=== PATIENT | female | born 1985 | race Caucasian/White ===

== ENCOUNTER 2017-02-17 17:09 | Inpatient (IN) | payer OTHER ==
[2017-02-17 17:36] VITALS: BMI 22.8
--- NOTE | 2017-02-17 18:00 | HP ---
COWS - Scale Resting Pulse: 0= [place] 80 or Below Sweatin=Flushed/Facial Moisture Restless Observation: 1= Difficult to Sit Still Pupil Size: 2= Moderately Dilated Bone or Joint Aches: 2= Severe Diffuse Aches Runny Nose/ Eye Tearin= Runny Nose/Eyes GI Upset > 30mins: 2= Nausea/Diarrhea Tremor Observation: 2= Slight Tremor Visible Yawning Observation: 1= 1-2x During Session Anxiety or Irritability: 2=Irritable/Anxious Goose Flesh Skin: 0=Smooth Skin COWS Score: 16 CIWA Score - CIWA Score Nausea/Vomitin Muscle Tremors: 4-Moderate,w/Arms Extend Anxiety: 4-Mod. Anxious/Guarded Agitation: 4-Moderately Restless Paroxysmal Sweats: 3 Orientation: 0-Oriented Tacttile Disturbances: 0-None Auditory Disturbances: 0-None Visual Disturbances: 0-None Headache: 1-Very Mild CIWA-Ar Total Score: 19 Admission ROS BHS - HPI Chief Complaint: Withdrawal sx. Allergies/Adverse Reactions: Allergies Allergy/AdvReac Type Severity Reaction Status Date / Time No Known Allergies Allergy Verified 08/25/16 17:52 History of Present Illness: 31 y/o man with a long hx. of drug dependence is admitted for detox. Pt. has been in previous detox,denies significant period drug free. Exam Limitations: No Limitations - Ebola screening Have you traveled outside of the country in the last 21 days: No Have you had contact with anyone from an Ebola affected area: No Have you been sick,other than usual withdrawal symptoms: No Do you have a fever: No - Review of Systems Constitutional: Diaphoresis EENT: reports: No Symptoms Reported Respiratory: reports: No Symptoms reported Cardiac: reports: No Symptoms Reported GI: reports: Diarrhea, Nausea, Abdominal cramping : reports: No Symptoms Reported Musculoskeletal: reports: Back Pain, Joint Pain, Muscle Pain Integumentary: reports: Sweating Neuro: reports: Headache, Tremors Endocrine: reports: No Symptoms Reported Hematology: reports: No Symptoms Reported Psychiatric: reports: No Sypmtoms Reported Other Systems: Reviewed and Negative Patient History - Patient Medical History Hx Anemia: No Hx Asthma: No Hx Chronic Obstructive Pulmonary Disease (COPD): No Hx Cancer: No Hx Cardiac Disorders: No Hx Congestive Heart Failure: No Hx Hypertension: No Hx Hypercholesterolemia: No Hx Pacemaker: No HX Cerebrovascular Accident: No Hx Seizures: No Hx Dementia: No Hx Diabetes: No Hx Gastrointestinal Disorders: No Hx Liver Disease: No Hx Genitourinary Disorders: No Hx Sexually Transmitted Disorders: No Hx Renal Disease (ESRD): No Hx Thyroid Disease: No Hx Human Immunodeficiency Virus (HIV): No Hx Hepatitis C: No Hx Depression: Yes (anxiety and depression) Hx Suicide Attempt: No Hx Bipolar Disorder: No Hx Schizophrenia: No - Patient Surgical History Past Surgical History: No Hx Neurologic Surgery: No Hx Cataract Extraction: No Hx Cardiac Surgery: No Hx Lung Surgery: No Hx Breast Surgery: No Hx Breast Biopsy: No Hx Abdominal Surgery: No Hx Appendectomy: No Hx Cholecystectomy: No Hx Genitourinary Surgery: No Hx Section: No Hx Orthopedic Surgery: No Hx Hysterectomy: No Anesthesia Reaction: No - PPD History Previous Implant?: Yes Documented Results: Negative w/proof Implanted On Prior R Admission?: Yes Date: 08/27/16 Results: 0 mm PPD to be Administered?: Yes - Reproductive History Patient is a Female of Child Bearing Age (11 -55 yrs old): Yes Last Menstrual Period: 01/31/17 Patient : No - Smoking Cessation Smoking history: Current every day smoker Have you smoked in the past 12 months: Yes Aproximately how many cigarettes per day: 30 Cigars Per Day: 0 Hx Chewing Tobacco Use: No Initiated information on smoking cessation: Yes 'Breaking Loose' booklet given: 02/17/17 - Substance & Tx. History Hx Alcohol Use: No Hx Substance Use: Yes Substance Use Type: Heroin, Tranquilizers Hx Substance Use Treatment: Yes (Detox) - Substances Abused Heroin Route: Inhalation Frequency: Daily Amount used: 10 bags Age of first use: 31 Date of Last Use: 02/16/17 Oxycontin Route: Oral Frequency: Daily Amount used: 120-150mg Age of first use: 28 Date of Last Use: 02/16/17 Alprazolam (Xanax) Route: Oral Frequency: Daily Amount used: 8-12mg Age of first use: 18 Date of Last Use: 02/16/17 Family Disease History - Family Disease History Family Disease History: Diabetes: Grandparent Admission Physical Exam BHS - Vital Signs Vital Signs: Vital Signs - 24 hr 02/17/17 17:25 Temperature 98.9 F Pulse Rate 69 Respiratory 18 Rate Blood Pressure 139/76 - Physical General Appearance: Yes: Tremorous, Sweating, Anxious HEENTM: Yes: Nasal Congestion, Rhinorrhea Respiratory: Yes: Chest Non-Tender, Lungs Clear, Normal Breath Sounds Neck: Yes: Supple Breast: Yes: Breast Exam Deferred Cardiology: Yes: Regular Rhythm, Regular Rate, S1, S2 Abdominal: Yes: Normal Bowel Sounds, Non Tender, Soft Genitourinary: Yes: Within Normal Limits Back: Yes: Within Normal Limits Extremities: Yes: Tremors Neurological: Yes: Fully Oriented, Alert Integumentary: Yes: Diaphoresis Lymphatic: Yes: Within Normal Limits - Diagnostic (1) Opioid dependence with withdrawal Current Visit: Yes Status: Chronic (2) Uncomplicated sedative, hypnotic or anxiolytic withdrawal Current Visit: Yes Status: Chronic (3) COPD (chronic obstructive pulmonary disease) Current Visit: Yes Status: Chronic Qualifiers: COPD type: emphysema Emphysema type: panlobular Qualified Code(s ): J43.1 - Panlobular emphysema Cleared for Admission [facility] - Detox or Rehab [facility] Level of Care: Medically Managed Detox Regimen/Protocol: Methadone/Valium [facility] Breath Alcohol Content Breath Alcohol Content: 0 Urine Pregancy Test - Result Urine Test Results: Negative- NO Line Present Urine Drug Screen - Results Drug Screen Negative: No Urine Drug Screen Results: THC-Marijuana, MARY-Cocaine, OPI-Opiates, BZO- Benzodiazepines, OXY-Oxycodone
[2017-02-17] MEDS ORDERED: LOPERAMIDE HCL 2 MG CAPSULE PO PRN (18:22)
[2017-02-17] MEDS ORDERED: diazePAM 5 MG TABLET PO ONE (18:22)
[2017-02-17] MEDS ORDERED: MAGNESIUM HYDROX 2400MG/30ML ORAL SUSPENSION 30 ML CUP PO PRN (18:22)
[2017-02-17] MEDS ORDERED: METHADONE HCL 10 MG TABLET (FOR DETOX USE ONLY) PO ONE ×2 (18:22→23:00)
[2017-02-17] MEDS ORDERED: P-EPHED 60MG/TRIPROLIDI 2.5MG TABLET PO PRN (18:22)
[2017-02-17] MEDS ORDERED: MAGNESIUM CITRATE 300 ML BOTTLE PO PRN (18:22)
[2017-02-17] MEDS ORDERED: MAG HYDROX/AL HYDROX/SIMETH 30 ML UNIT-DOSE CUP PO PRN (18:22)
[2017-02-17] MEDS ORDERED: MENTHOL/PHENOL 1 EACH UD MM PRN (18:22)
[2017-02-17] MEDS ORDERED: guaiFENesin/D-METHORPHAN HB 10 ML UNIT-DOSE CUPS PO PRN (18:22)
[2017-02-17] MEDS ORDERED: ALBUTEROL SO4 6.7 GM HFA INHALER IH PRN (18:28)
[2017-02-17] MEDS: NICOTINE 21 MG/24 HOURS TOPICAL PATCH TD SCH (20:24)
[2017-02-17] MEDS: NICOTINE POLACRILEX 4 MG GUM BC PRN (21:17)
[2017-02-17] MEDS: THIAMINE HCL 100 MG TABLET (FP) PO SCH (22:34)
[2017-02-17] MEDS: diazePAM 5 MG TABLET PO SCH (22:34)
[2017-02-17] MEDS: IBUPROFEN 400 MG TABLET (FP) PO PRN (22:36)
[2017-02-17] MEDS: diphenhydrAMINE HCL 50 MG CAPSULE PO PRN (22:37)
[2017-02-18] MEDS: diazePAM 5 MG TABLET PO SCH ×3 (05:54→22:31)
[2017-02-18] MEDS: IBUPROFEN 400 MG TABLET (FP) PO PRN (05:56)
--- NOTE | 2017-02-18 06:57 | PN ---
S Progress Note Note: restarted on augmentin x3 days for dental abcess. client reports completed 1 week
[2017-02-18] MEDS: AMOX TR/POT CLAV 875MG/125MG TABLETS (FP) PO SCH ×2 (07:41→17:18)
[2017-02-18] MEDS ORDERED: CYCLOBENZAPRINE HCL 10 MG TABLET (FP) PO ONE (09:34)
[2017-02-18] MEDS ORDERED: METHADONE HCL 10 MG TABLET (FOR DETOX USE ONLY) PO SCH (10:00)
--- NOTE | 2017-02-18 10:27 | PN ---
S CIWA - CIWA Score Nausea/Vomitin-No Nausea/No Vomiting Muscle Tremors: 4-Moderate,w/Arms Extend Anxiety: 4-Mod. Anxious/Guarded Agitation: 4-Moderately Restless Paroxysmal Sweats: 3 Orientation: 0-Oriented Tacttile Disturbances: 0-None Auditory Disturbances: 0-None Visual Disturbances: 0-None Headache: 0-None Present CIWA-Ar Total Score: 15 BHS COWS - Scale Resting Pulse: 0= [place] 80 or Below Sweatin=Flushed/Facial Moisture Restless Observation: 3= Extraneous Movement Pupil Size: 0= Normal to Room Light Bone or Joint Aches: 2= Severe Diffuse Aches Runny Nose/ Eye Tearin= Runny Nose/Eyes GI Upset > 30mins: 2= Nausea/Diarrhea Tremor Observation of Outstretched Hands: 2= Slight Tremor Visible Yawning Observation: 1= 1-2x During Session Anxiety or Irritability: 2=Irritable/Anxious Goose Flesh Skin: 0=Smooth Skin COWS Score: 16 BHS Progress Note (SOAP) Subjective: Anxiety,tremors,sweating,interrupted sleep,restless,muscle aches/spasm Objective: 02/18/17 10:26 Vital Signs - 8 hr 02/18/17 02/18/17 02/18/17 05:22 06:00 10:00 Temperature 97.5 F L 98.1 F Pulse Rate 63 65 Respiratory 18 16 18 Rate Blood Pressure 113/71 107/56 Assessment: 02/18/17 10:27 Withdrawal sx. Plan: Continue detox
[2017-02-18] MEDS: PRENATAL VITAMINS W/ FOLIC ACID TABLET (FP) PO SCH (10:39)
[2017-02-18] MEDS: diazePAM 5 MG TABLET PO PRN (10:39)
[2017-02-18] MEDS: NICOTINE 21 MG/24 HOURS TOPICAL PATCH TD SCH (10:41)
[2017-02-18 10:48] LABS: MCH 32.7 pg (25.7-33.7); MCHC 34.2 g/dl (32.0-36.0); MEAN CELL VOLUME 95.7 fl (80-96); PLATELET COUNT 263 K/MM3 (134-434); RDW 13.2 % (11.6-15.6); WHITE BLOOD COUNT 8.8 K/mm3 (4.0-10.0)
[2017-02-18 10:57] LABS: ALBUMIN 4.3 g/dl (3.4-5.0); ANION GAP 7 (8-16); CALCIUM 9.6 mg/dL (8.5-10.1); CO2 30 mmol/L (21-32); CREATININE 0.7 mg/dL (0.55-1.02); GLUCOSE,RANDOM 56 mg/dL (74-106); SGOT/AST 14 U/L (15-37); SGPT/ALT 13 U/L (12-78)
[2017-02-18 10:59] LABS: ALK PHOS 78 U/L (45-117); BILIRUBIN,TOTAL 1.1 mg/dL (0.2-1.0); TOT PROT 7.6 g/dl (6.4-8.2)
[2017-02-18 11:13] LABS: URINE APPEARANCE CLEAR; URINE BILIRUBIN NEGATIVE (NEGATIVE); URINE BLOOD NEGATIVE (NEGATIVE); URINE COLOR YELLOW; URINE GLUCOSE (UA) NEGATIVE (NEGATIVE); URINE KETONE NEGATIVE (NEGATIVE); URINE LEUK ESTERASE NEGATIVE (NEGATIVE); URINE NITRITE NEGATIVE (NEGATIVE); URINE PROTEIN NEGATIVE (NEGATIVE); URINE UROBILINOGEN NEGATIVE E.U./dl (0.2-1.0)
[2017-02-18] MEDS ORDERED: PNEUMOC 13-VAL CONJ-DIP CRM/PF 0.5 ML DISP.SYRIN IM ONE (12:00)
[2017-02-18] MEDS ORDERED: PNEUMOCOCCAL 23 VACCINE 0.5 ML VIAL IM ONE (12:00)
[2017-02-18] MEDS: CYCLOBENZAPRINE HCL 10 MG TABLET (FP) PO SCH ×2 (15:28→22:31)
--- NOTE | 2017-02-18 16:36 | EKG ---
Test Reason : Blood Pressure : / mmHG Vent. Rate : 063 BPM Atrial Rate : 063 BPM P-R Int : 124 ms QRS Dur : 084 ms QT Int : 436 ms P-R-T Axes : 006 077 049 degrees QTc Int : 446 ms NORMAL SINUS RHYTHM WITH SINUS ARRHYTHMIA NORMAL ECG NO PREVIOUS ECGS AVAILABLE Confirmed by SHAMA RODARTE MD ([id number]) on 02/18/2017 4:36:25 PM Referred By: Confirmed By:SHAMA RODARTE MD
[2017-02-18] MEDS: THIAMINE HCL 100 MG TABLET (FP) PO SCH (22:31)
[2017-02-18] MEDS: diphenhydrAMINE HCL 50 MG CAPSULE PO PRN (22:31)
[2017-02-19] MEDS: IBUPROFEN 400 MG TABLET (FP) PO PRN (05:26)
[2017-02-19] MEDS: diazePAM 5 MG TABLET PO PRN ×3 (05:27→18:19)
[2017-02-19] MEDS: CYCLOBENZAPRINE HCL 10 MG TABLET (FP) PO SCH ×3 (05:28→22:55)
[2017-02-19] MEDS: AMOX TR/POT CLAV 875MG/125MG TABLETS (FP) PO SCH ×2 (07:16→17:32)
[2017-02-19] MEDS ORDERED: SODIUM CHLORIDE NASAL SPRAY 44 ML BOTTLE NS PRN (09:07)
--- NOTE | 2017-02-19 09:23 | CONSULT ---
[facility] Psychiatric Consult - Data Date of interview: 02/19/17 Admission source: [facility] Identifying data: This is 31 years old female with no psychiatric hospitalization jhistory intoxicated with: Opioids, Xanax, Cocaine and Nicotine Substance Abuse History: - Smoking Cessation. Smoking history: Current every day smoker. Have you smoked in the past 12 months: Yes. Aproximately how many cigarettes per day: 30. Cigars Per Day: 0. Hx Chewing Tobacco Use: No. Initiated information on smoking cessation: Yes. 'Breaking Loose' booklet given : 02/17/17. - Substance & Tx. History. Hx Alcohol Use: No. Hx Substance Use: Yes. Substance Use Type: Heroin, Tranquilizers. Hx Substance Use Treatment: Yes (Detox). - Substances Abused. Heroin. Route: Inhalation. Frequency: Daily. Amount used: 10 bags. Age of first use: 31. Date of Last Use: . Oxycontin. Route: Oral. Frequency: Daily. Amount used: 120-150mg. Age of first use: 28. Date of Last Use: 02/16/17. Alprazolam (Xanax). Route: Oral. Frequency: Daily. Amount used: 8-12mg. Age of first use: 18. Date of Last Use: 02/16/17 Medical History: COPD Psychiatric History: P-racquel reports history of depressiojhn and anxiety, insomnia, reports taking prior to admsision: Ambien 10mg po qhs. Seroquel 200mg po qhs Physical/Sexual Abuse/Trauma History: Denies Additional Comment: Ambien 10mg po qhs. Seroquel 200mg po qhs Mental Status Exam - Mental Status Exam Alert and Oriented to: Person Cognitive Function: Fair Patient Appearance: Unkempt Mood: Sad Affect: Flat Patient Behavior: Cooperative Speech Pattern: Appropriate Voice Loudness: Mildly Soft/Quiet Thought Process: Goal Oriented Thought Disorder: Being Controlled Hallucinations: Denies Suicidal Ideation: Denies Homicidal Ideation: Denies Insight/Judgement: Fair Sleep: Difficulty falling asleep Appetite: Weight gain Muscle strength/Tone: Mild Hypotonicity Gait/Station: Normal Additional Comments: Ambien 10mg po qhs. Seroquel 200mg po qhs Psychiatric Findings - Problem List ([place] 1, 2,3) (1) Opioid dependence with withdrawal Current Visit: Yes Status: Chronic (2) Substance induced mood disorder Current Visit: No Status: Acute (3) Substance-induced anxiety disorder Current Visit: No Status: Acute (4) Substance-induced sleep disorder Current Visit: No Status: Acute (5) Anxiety and depression Current Visit: No Status: Chronic (6) Cannabis abuse Current Visit: No Status: Chronic (7) Cocaine abuse Current Visit: No Status: Chronic (8) Nicotine dependence Current Visit: No Status: Chronic Qualifiers: Nicotine product type: cigarettes Substance use status: uncomplicated Qualified Code(s): F17.210 - Nicotine dependence, cigarettes, uncomplicated - Initial Treatment Plan Initial Treatment Plan: Ambien 10mg po qhs. Seroquel 200mg po qhs
--- NOTE | 2017-02-19 09:56 | PN ---
[facility] CIWA - CIWA Score Nausea/Vomitin-No Nausea/No Vomiting Muscle Tremors: 4-Moderate,w/Arms Extend Anxiety: 3 Agitation: 4-Moderately Restless Paroxysmal Sweats: 3 Orientation: 0-Oriented Tacttile Disturbances: 0-None Auditory Disturbances: 0-None Visual Disturbances: 0-None Headache: 0-None Present CIWA-Ar Total Score: 14 S COWS - Scale Resting Pulse: 0= [place] 80 or Below Sweatin=Flushed/Facial Moisture Restless Observation: 1= Difficult to Sit Still Pupil Size: 0= Normal to Room Light Bone or Joint Aches: 2= Severe Diffuse Aches Runny Nose/ Eye Tearin= Runny Nose/Eyes GI Upset > 30mins: 0= None Tremor Observation of Outstretched Hands: 2= Slight Tremor Visible Yawning Observation: 1= 1-2x During Session Anxiety or Irritability: 2=Irritable/Anxious Goose Flesh Skin: 0=Smooth Skin COWS Score: 12 [facility] Progress Note (SOAP) Subjective: nasal congestion sweats shakes interrupted sleep body aches irritable Objective: 02/19/17 12:40 Vital Signs Temperature 97.3 F L 02/19/17 10:00 Pulse Rate 74 02/19/17 10:00 Respiratory Rate 18 02/19/17 10:00 Blood Pressure 98/58 02/19/17 10:00 O2 Sat by Pulse Oximetry (%) Laboratory Tests 02/18/17 02/18/17 02/18/17 07:45 07:45 07:45 WBC 8.8 RBC 4.70 Hgb 15.4 H Hct 45.0 MCV 95.7 MCHC 34.2 RDW 13.2 Plt Count 263 MPV 8.0 Sodium 140 Potassium 4.7 Chloride 103 Carbon Dioxide 30 Anion Gap 7 L BUN 8 Creatinine 0.7 Creat Clearance w eGFR > 60 Random Glucose 56 L Calcium 9.6 Total Bilirubin 1.1 H D AST 14 L D ALT 13 Alkaline Phosphatase 78 Total Protein 7.6 Albumin 4.3 Urine Color Urine Appearance Urine pH Ur Specific [place] Urine Protein Urine Glucose (UA) Urine Ketones Urine Blood Urine Nitrite Urine Bilirubin Urine Urobilinogen Ur Leukocyte Esterase RPR Titer Nonreactive 02/18/17 07:45 WBC RBC Hgb Hct MCV MCHC RDW Plt Count MPV Sodium Potassium Chloride Carbon Dioxide Anion Gap BUN Creatinine Creat Clearance w eGFR Random Glucose Calcium Total Bilirubin AST ALT Alkaline Phosphatase Total Protein Albumin Urine Color Yellow Urine Appearance Clear Urine pH 5.0 Ur Specific [place] 1.015 Urine Protein Negative Urine Glucose (UA) Negative Urine Ketones Negative Urine Blood Negative Urine Nitrite Negative Urine Bilirubin Negative Urine Urobilinogen Negative Ur Leukocyte Esterase Negative RPR Titer awake/alert ambulating no acute distress Assessment: 02/19/17 12:41 withdrawal sx Plan: [place] prn continue detox increase fluids
[2017-02-19] MEDS: PRENATAL VITAMINS W/ FOLIC ACID TABLET (FP) PO SCH (10:47)
[2017-02-19] MEDS: diazePAM 5 MG TABLET PO SCH ×2 (10:47→22:32)
[2017-02-19] MEDS: METHADONE HCL 5 MG TABLET (FOR DETOX USE ONLY) PO SCH (10:47)
[2017-02-19] MEDS: NICOTINE 21 MG/24 HOURS TOPICAL PATCH TD SCH (10:48)
[2017-02-19] MEDS: THIAMINE HCL 100 MG TABLET (FP) PO SCH (22:32)
[2017-02-19] MEDS: ZOLPIDEM TARTRATE 10 MG TABLET (PARK CARE ONLY) PO PRN (22:55)
[2017-02-19] MEDS: QUEtiapine FUMARATE 200 MG TABLET PO SCH (22:55)
[2017-02-20] MEDS: CYCLOBENZAPRINE HCL 10 MG TABLET (FP) PO SCH ×3 (06:01→22:34)
[2017-02-20] MEDS: diazePAM 5 MG TABLET PO PRN ×3 (06:04→16:48)
[2017-02-20] MEDS: IBUPROFEN 400 MG TABLET (FP) PO PRN (06:05)
[2017-02-20] MEDS: AMOX TR/POT CLAV 875MG/125MG TABLETS (FP) PO SCH ×2 (08:16→16:48)
[2017-02-20] MEDS ORDERED: LIDOCAINE VISCOUS 2% ORAL/TOP 20 ML UNIT-DOSE CUP MM PRN (09:37)
--- NOTE | 2017-02-20 09:42 | PN ---
BHS Progress Note (SOAP) Subjective: agitation tooth ache sweats Objective: 02/20/17 09:41 Vital Signs Temperature 96.8 F L 02/20/17 06:39 Pulse Rate 80 02/20/17 06:39 Respiratory Rate 17 02/20/17 06:39 Blood Pressure 96/53 02/20/17 06:39 O2 Sat by Pulse Oximetry (%) awake/alert ambulating no acute distress Assessment: 02/20/17 09:41 withdrawal sx Plan: continue detox increase fluids lidocaine s/s motrin 600mg prn
[2017-02-20] MEDS: PRENATAL VITAMINS W/ FOLIC ACID TABLET (FP) PO SCH (10:30)
[2017-02-20] MEDS: NICOTINE 21 MG/24 HOURS TOPICAL PATCH TD SCH (10:30)
[2017-02-20] MEDS: IBUPROFEN 600 MG TABLET (FP) PO PRN ×2 (10:31→22:36)
[2017-02-20] MEDS: METHADONE HCL 5 MG TABLET (FOR DETOX USE ONLY) PO SCH (10:31)
[2017-02-20] MEDS: diazePAM 5 MG TABLET PO SCH ×2 (10:31→22:34)
[2017-02-20] MEDS ORDERED: FLUCONAZOLE 50 MG TABLET PO ONE (12:15)
[2017-02-20] MEDS: NICOTINE POLACRILEX 4 MG GUM BC PRN (16:53)
[2017-02-20] MEDS: THIAMINE HCL 100 MG TABLET (FP) PO SCH (22:33)
[2017-02-20] MEDS: QUEtiapine FUMARATE 200 MG TABLET PO SCH (22:33)
[2017-02-20] MEDS: ZOLPIDEM TARTRATE 10 MG TABLET (PARK CARE ONLY) PO PRN (22:34)
[2017-02-21] MEDS: CYCLOBENZAPRINE HCL 10 MG TABLET (FP) PO SCH ×3 (06:14→22:52)
[2017-02-21] MEDS: IBUPROFEN 600 MG TABLET (FP) PO PRN ×2 (06:16→11:26)
[2017-02-21] MEDS: hydrOXYzine PAMOATE 50 MG CAPSULE (FP) PO PRN ×3 (06:17→22:57)
[2017-02-21] MEDS: AMOX TR/POT CLAV 875MG/125MG TABLETS (FP) PO SCH (07:31)
[2017-02-21] MEDS ORDERED: METHADONE HCL 10 MG TABLET (FOR DETOX USE ONLY) PO SCH (10:00)
[2017-02-21] MEDS ORDERED: diazePAM 5 MG TABLET PO SCH (10:00)
[2017-02-21] MEDS: PRENATAL VITAMINS W/ FOLIC ACID TABLET (FP) PO SCH (11:03)
[2017-02-21] MEDS: NICOTINE 21 MG/24 HOURS TOPICAL PATCH TD SCH (11:03)
--- NOTE | 2017-02-21 11:18 | PN ---
BHS Progress Note (SOAP) Subjective: sore throat sweats anxiety Objective: 02/21/17 11:08 Vital Signs Temperature 97.2 F L 02/21/17 10:13 Pulse Rate 91 H 02/21/17 10:13 Respiratory Rate 16 02/21/17 10:13 Blood Pressure 107/80 02/21/17 10:13 O2 Sat by Pulse Oximetry (%) awake/alert ambulating no acute distress Assessment: 02/21/17 11:09 withdrawal sx little trace of thrush noted Plan: continue detox increase fluids myclex troches ordered continue ABX as ordered d/c in am
[2017-02-21] MEDS: NICOTINE POLACRILEX 4 MG GUM BC PRN ×2 (11:29→17:45)
[2017-02-21] MEDS: CLOTRIMAZOLE 10 MG TROCHE (FP) PO SCH ×3 (14:10→22:53)
[2017-02-21] MEDS: ACETAMINOPHEN 325 MG TABLET (FP) PO PRN ×2 (17:28→22:54)
[2017-02-21] MEDS: ZOLPIDEM TARTRATE 10 MG TABLET (PARK CARE ONLY) PO PRN (22:52)
[2017-02-21] MEDS: QUEtiapine FUMARATE 200 MG TABLET PO SCH (22:53)
[2017-02-21] MEDS: THIAMINE HCL 100 MG TABLET (FP) PO SCH (22:53)
[2017-02-22] MEDS: CYCLOBENZAPRINE HCL 10 MG TABLET (FP) PO SCH (05:47)
[2017-02-22] MEDS: hydrOXYzine PAMOATE 50 MG CAPSULE (FP) PO PRN (05:47)
[2017-02-22] MEDS: CLOTRIMAZOLE 10 MG TROCHE (FP) PO SCH (05:47)
[2017-02-22] MEDS ORDERED: METHADONE HCL 5 MG TABLET (FOR DETOX USE ONLY) PO SCH (06:00)
[2017-02-22 06:30] VITALS: BP 110/72; PULSE 98; TEMP 97.5
--- NOTE | 2017-02-22 08:23 | DS ---
[facility] Detox Discharge Summary Admission Date: 02/17/17 Discharge Date: 02/22/17 - History Present History: Cannabis Dependence, Cocaine Dependence, Opioid Dependence, Sedative Dependence - Physical Exam Results Vital Signs: Vital Signs Temperature 97.5 F L 02/22/17 06:00 Pulse Rate 98 H 02/22/17 06:00 Respiratory Rate 18 02/22/17 06:00 Blood Pressure 110/72 02/22/17 06:00 O2 Sat by Pulse Oximetry (%) - Treatment Hospital Course: Detox Protocol Followed, Detoxed Safely, Responded well, Discharged Condition Good, Rehab Referral Accepted - Medication Discharge Medications: Ambulatory Orders Hydroxyzine Pamoate [Vistaril -] 50 mg PO Q4H PRN #90 capsule 08/28/16 Quetiapine Fumarate [Seroquel -] 200 mg PO HS #30 tab 08/28/16 Albuterol Sulfate Inhaler - [Ventolin HFA Inhaler -] 2 puff IH Q4H PRN #1 inhaler 08/30/16 Amoxicillin - [Amoxicillin 500mg Capsule -] 500 mg PO TID #20 capsule 08/30/16 Quetiapine Fumarate [Seroquel -] 200 mg PO HS #30 tab 08/30/16 Zolpidem Tartrate [Ambien] 10 mg PO HS PRN #14 tablet MDD 10 08/30/16 Amoxicillin/Potassium Clav [Augmentin 875-125 Tablet] 875 mg PO BID 02/17/17 Quetiapine Fumarate [Seroquel -] 200 mg PO HS #30 tab 02/19/17 Zolpidem Tartrate [Ambien] 10 mg PO HS PRN #14 tablet MDD 10 02/19/17 - Diagnosis (1) COPD (chronic obstructive pulmonary disease) Current Visit: Yes Status: Chronic Qualifiers: COPD type: emphysema Emphysema type: unspecified Qualified Code( s): J43.9 - Emphysema, unspecified (2) Opioid dependence with withdrawal Current Visit: Yes Status: Chronic (3) Uncomplicated sedative, hypnotic or anxiolytic withdrawal Current Visit: Yes Status: Chronic (4) Substance induced mood disorder Current Visit: No Status: Acute (5) Substance-induced anxiety disorder Current Visit: No Status: Acute (6) Substance-induced sleep disorder Current Visit: No Status: Acute (7) Anxiety and depression Current Visit: No Status: Chronic (8) Cannabis abuse Current Visit: Yes Status: Chronic (9) Cocaine abuse Current Visit: Yes Status: Chronic (10) Nicotine dependence Current Visit: Yes Status: Chronic Qualifiers: Nicotine product type: cigarettes Substance use status: uncomplicated Qualified Code(s): F17.210 - Nicotine dependence, cigarettes, uncomplicated - AMA Did Patient Leave Against Medical Advice: No (going to [facility] )
== END 2017-02-22 09:25 | disposition home or self-care (01) | DRG 773 ==
LOC: YASAS 17:09 → Y6N 19:27
PROVIDERS: ADMIT Internal Medicine; ATTEND Internal Medicine
PROC: HZ2ZZZZ Detoxification Services for Substance Abuse Treatment (ICD-10-PCS; principal; 2017-02-22)
DX: F11.23 Opioid dependence with withdrawal (principal); F13.230 Sedative, hypnotic or anxiolytic dependence with withdrawal, uncomplicated; F17.210 Nicotine dependence, cigarettes, uncomplicated; F14.10 Cocaine abuse, uncomplicated; F12.10 Cannabis abuse, uncomplicated; F19.24 Other psychoactive substance dependence with psychoactive substance-induced mood disorder; F19.282 Other psychoactive substance dependence with psychoactive substance-induced sleep disorder; F19.280 Other psychoactive substance dependence with psychoactive substance-induced anxiety disorder; F41.8 Other specified anxiety disorders; J43.9 Emphysema, unspecified
CPT/HCPCS: 36415; 80053; 81003; 85027; 86593; 90732; 93005; 93010; G0009

== ENCOUNTER 2017-06-06 14:46 | Inpatient (IN) | payer OTHER ==
[2017-06-06 17:30] VITALS: BMI 22.3
[2017-06-06] MEDS ORDERED: IBUPROFEN 400 MG TABLET (FP) PO PRN (20:47)
[2017-06-06] MEDS ORDERED: guaiFENesin/D-METHORPHAN HB 10 ML UNIT-DOSE CUPS PO PRN (20:47)
[2017-06-06] MEDS ORDERED: LOPERAMIDE HCL 2 MG CAPSULE PO PRN (20:47)
[2017-06-06] MEDS ORDERED: P-EPHED 60MG/TRIPROLIDI 2.5MG TABLET PO PRN (20:47)
[2017-06-06] MEDS ORDERED: MAGNESIUM CITRATE 300 ML BOTTLE PO PRN (20:47)
[2017-06-06] MEDS ORDERED: diazePAM 5 MG TABLET PO ONE (20:47)
[2017-06-06] MEDS ORDERED: MAGNESIUM HYDROX 2400MG/30ML ORAL SUSPENSION 30 ML CUP PO PRN (20:47)
[2017-06-06] MEDS ORDERED: ACETAMINOPHEN 325 MG TABLET (FP) PO PRN (20:47)
[2017-06-06] MEDS ORDERED: MENTHOL/PHENOL 1 EACH UD MM PRN (20:47)
[2017-06-06] MEDS ORDERED: METHADONE HCL 10 MG TABLET (FOR DETOX USE ONLY) PO ONE ×2 (20:47→23:00)
--- NOTE | 2017-06-06 20:47 | HP ---
COWS - Scale Resting Pulse: 0= [place] 80 or Below Sweatin= Chills/Flushing Restless Observation: 3= Extraneous Movement Pupil Size: 0= Normal to Room Light Bone or Joint Aches: 2= Severe Diffuse Aches Runny Nose/ Eye Tearin= Runny Nose/Eyes GI Upset > 30mins: 2= Nausea/Diarrhea Tremor Observation: 1= Tremor [place], Not Seen Yawning Observation: 0= None Anxiety or Irritability: 2=Irritable/Anxious Goose Flesh Skin: 0=Smooth Skin COWS Score: 13 CIWA Score - CIWA Score Nausea/Vomitin-Mild Nausea/No Vomiting Muscle Tremors: 4-Moderate,w/Arms Extend Anxiety: 4-Mod. Anxious/Guarded Agitation: 4-Moderately Restless Paroxysmal Sweats: 1-Minimal Palms Moist Orientation: 0-Oriented Tacttile Disturbances: 0-None Auditory Disturbances: 0-None Visual Disturbances: 0-None Headache: 0-None Present CIWA-Ar Total Score: 14 Admission ROS S - HPI Chief Complaint: withdrawal sx Allergies/Adverse Reactions: Allergies Allergy/AdvReac Type Severity Reaction Status Date / Time No Known Allergies Allergy Verified 06/06/17 20:10 History of Present Illness: 31 years old female with long history of opiate, benzo, nicotine cocaine dependence, denies medical issue has depression is admitted to detox Exam Limitations: No Limitations - Ebola screening Have you traveled outside of the country in the last 21 days: No Have you had contact with anyone from an Ebola affected area: No Have you been sick,other than usual withdrawal symptoms: No Do you have a fever: No - Review of Systems Constitutional: Loss of Appetite, Changes in sleep, Unintentional Wgt. Loss, Unexplained wgt Loss EENT: reports: No Symptoms Reported Respiratory: reports: No Symptoms reported Cardiac: reports: No Symptoms Reported GI: reports: Nausea, Poor Appetite, Poor Fluid Intake, Abdominal cramping : reports: No Symptoms Reported Musculoskeletal: reports: Back Pain, Joint Pain, Muscle Pain, Neck Pain Integumentary: reports: No Symptoms Reported Neuro: reports: Tremors Endocrine: reports: No Symptoms Reported Hematology: reports: No Symptoms Reported Psychiatric: reports: Judgement Intact, Orientated x3, Depressed Other Systems: Reviewed and Negative Patient History - Patient Medical History Hx Anemia: No Hx Asthma: No Hx Chronic Obstructive Pulmonary Disease (COPD): No Hx Cancer: No Hx Cardiac Disorders: No Hx Congestive Heart Failure: No Hx Hypertension: No Hx Hypercholesterolemia: No Hx Pacemaker: No HX Cerebrovascular Accident: No Hx Seizures: No Hx Dementia: No Hx Diabetes: No Hx Gastrointestinal Disorders: No Hx Liver Disease: No Hx Genitourinary Disorders: No Hx Sexually Transmitted Disorders: No Hx Renal Disease (ESRD): No Hx Thyroid Disease: No Hx Human Immunodeficiency Virus (HIV): No Hx Hepatitis C: No Hx Depression: Yes Hx Suicide Attempt: No Hx Bipolar Disorder: No Hx Schizophrenia: No - Patient Surgical History Past Surgical History: No Hx Neurologic Surgery: No Hx Cataract Extraction: No Hx Cardiac Surgery: No Hx Lung Surgery: No Hx Breast Surgery: No Hx Breast Biopsy: No Hx Abdominal Surgery: No Hx Appendectomy: No Hx Cholecystectomy: No Hx Genitourinary Surgery: No Hx Section: No Hx Orthopedic Surgery: No Hx Hysterectomy: No - PPD History Previous Implant?: Yes Documented Results: Negative w/proof Implanted On Prior [facility] Admission?: Yes Date: 08/27/16 Results: 0 mm PPD to be Administered?: No - Reproductive History Patient is a Female of Child Bearing Age (11 -55 yrs old): Yes Last Menstrual Period: 05/16/17 Patient : No - Smoking Cessation Smoking history: Current every day smoker Have you smoked in the past 12 months: Yes Aproximately how many cigarettes per day: 30 Cigars Per Day: 0 Hx Chewing Tobacco Use: No Initiated information on smoking cessation: Yes 'Breaking Loose' booklet given: 06/06/17 - Substance & Tx. History Hx Substance Use: No Substance Use Type: Cocaine, Heroin, Tranquilizers Hx Substance Use Treatment: Yes (02/17-02/22/17 [facility]) - Substances Abused Heroin Route: Inhalation Frequency: Daily Amount used: 1 BUNDLE Age of first use: 29 Date of Last Use: 06/05/17 Crack Route: Smoking Frequency: Daily Amount used: $20 Age of first use: 31 Date of Last Use: 06/05/17 Alprazolam (Xanax) Route: Oral Frequency: Daily Amount used: 4-6 MG Age of first use: 27 Date of Last Use: 06/05/17 Oxycontin Route: Oral Frequency: 1-2 times per week Amount used: 3 TABS Age of first use: 27 Date of Last Use: 06/03/17 Marijuana/Hashish Route: Smoking Frequency: 1-3 times last 30 days Amount used: 1 JOINT Age of first use: 17 Date of Last Use: 06/04/17 Family Disease History - Family Disease History Family Disease History: Diabetes: Grandparent Admission Physical Exam [facility] - Vital Signs Vital Signs: Vital Signs - 24 hr 06/06/17 17:28 Temperature 98.4 F Pulse Rate 69 Respiratory 18 Rate Blood Pressure 128/76 - Physical General Appearance: Yes: Appropriately Dressed, Mild Distress, Thin, Tremorous, Irritable, Sweating, Anxious HEENTM: Yes: Hearing grossly Normal, Normal ENT Inspection, Normocephalic, Normal Voice Respiratory: Yes: Chest Non-Tender, Lungs Clear, Normal Breath Sounds, No Respiratory Distress, No Accessory Muscle Use Neck: Yes: Supple, Trachea in good position Breast: Yes: Breasts Symetrical Cardiology: Yes: Regular Rhythm, Regular Rate, S1, S2 Abdominal: Yes: Non Tender, Soft, Increased Bowel Sounds Genitourinary: Yes: Within Normal Limits Back: Yes: Normal Inspection Musculoskeletal: Yes: full range of Motion, Gait Steady, Back pain, Muscle Pain Extremities: Yes: Normal Inspection, Normal Range of Motion, Non-Tender, Tremors Neurological: Yes: Fully Oriented, Alert, Motor Strength 5/5, Normal Response, Depressed Affect Integumentary: Yes: Warm Lymphatic: Yes: Within Normal Limits - Diagnostic (1) COPD (chronic obstructive pulmonary disease) Current Visit: Yes Status: Chronic Qualifiers: COPD type: emphysema Emphysema type: unspecified Qualified Code( s): J43.9 - Emphysema, unspecified (2) Nicotine dependence Current Visit: Yes Status: Acute Qualifiers: Nicotine product type: cigarettes Substance use status: in withdrawal Qualified Code(s): F17.213 - Nicotine dependence, cigarettes, with withdrawal (3) Opioid dependence with withdrawal Current Visit: Yes Status: Acute (4) Uncomplicated sedative, hypnotic or anxiolytic withdrawal Current Visit: Yes Status: Acute (5) Depression (emotion) Current Visit: Yes Status: Suspected Qualifiers: Depression Type: dysthymia Qualified Code(s): F34.1 - Dysthymic disorder Cleared for Admission [facility] - Detox or Rehab [facility] Level of Care: Medically Managed Detox Regimen/Protocol: Methadone/Valium [facility] Breath Alcohol Content Breath Alcohol Content: 0 Urine Pregancy Test - Result Urine Test Results: Negative- NO Line Present Urine Drug Screen - Results Drug Screen Negative: No Urine Drug Screen Results: MARY-Cocaine, OPI-Opiates, BZO-Benzodiazepines, MTD- Methadone, OXY-Oxycodone
[2017-06-06] MEDS ORDERED: ALBUTEROL SO4 2.5/IPRATROPIUM 0.5 INH SOL 3 ML VIAL.NEB. NEB PRN (20:50)
[2017-06-06] MEDS: diphenhydrAMINE HCL 50 MG CAPSULE PO PRN (21:32)
[2017-06-06] MEDS: THIAMINE HCL 100 MG TABLET (FP) PO SCH (21:32)
[2017-06-06] MEDS: diazePAM 5 MG TABLET PO SCH (21:41)
[2017-06-07] MEDS: diazePAM 5 MG TABLET PO SCH ×3 (06:13→22:30)
[2017-06-07] MEDS ORDERED: METHADONE HCL 10 MG TABLET (FOR DETOX USE ONLY) PO SCH (10:00)
[2017-06-07 10:18] LABS: MCH 32.3 pg (25.7-33.7); MCHC 34.1 g/dl (32.0-36.0); MEAN CELL VOLUME 94.9 fl (80-96); PLATELET COUNT 326 K/MM3 (134-434); RDW 13.1 % (11.6-15.6); WHITE BLOOD COUNT 8.1 K/mm3 (4.0-10.0)
[2017-06-07 10:24] LABS: ALBUMIN 3.7 g/dl (3.4-5.0); ANION GAP 5 (8-16); CALCIUM 9.5 mg/dL (8.5-10.1); CO2 30 mmol/L (21-32); GLUCOSE,RANDOM 72 mg/dL (74-106)
[2017-06-07 10:27] LABS: ALK PHOS 74 U/L (45-117); BILIRUBIN,TOTAL 0.7 mg/dL (0.2-1.0); CREATININE 0.8 mg/dL (0.55-1.02); SGOT/AST 19 U/L (15-37); SGPT/ALT 17 U/L (12-78); TOT PROT 7.1 g/dl (6.4-8.2)
[2017-06-07] MEDS: PRENATAL VITAMINS W/ FOLIC ACID TABLET (FP) PO SCH (10:36)
[2017-06-07] MEDS: diazePAM 5 MG TABLET PO PRN ×2 (10:36→17:02)
[2017-06-07] MEDS: NICOTINE 21 MG/24 HOURS TOPICAL PATCH TD SCH (10:37)
[2017-06-07] MEDS ORDERED: FLU VACCINE QUAD 60 MCG/0.5 ML (MDV 17-18) IM ONE (12:00)
--- NOTE | 2017-06-07 12:40 | PN ---
[facility] CIWA - CIWA Score Nausea/Vomitin-No Nausea/No Vomiting Muscle Tremors: 4-Moderate,w/Arms Extend Anxiety: 4-Mod. Anxious/Guarded Agitation: 4-Moderately Restless Paroxysmal Sweats: 3 Orientation: 0-Oriented Tacttile Disturbances: 0-None Auditory Disturbances: 0-None Visual Disturbances: 0-None Headache: 0-None Present CIWA-Ar Total Score: 15 BHS COWS - Scale Resting Pulse: 1= [place] 81-100 Sweatin=Flushed/Facial Moisture Restless Observation: 0= Sits Still Pupil Size: 0= Normal to Room Light Bone or Joint Aches: 2= Severe Diffuse Aches Runny Nose/ Eye Tearin= Nasal Congestion GI Upset > 30mins: 2= Nausea/Diarrhea Tremor Observation of Outstretched Hands: 2= Slight Tremor Visible Yawning Observation: 1= 1-2x During Session Anxiety or Irritability: 2=Irritable/Anxious Goose Flesh Skin: 0=Smooth Skin COWS Score: 13 S Progress Note (SOAP) Subjective: sweats body aches chills tooth ache interrupted sleep irritable Objective: 06/07/17 12:36 Vital Signs Temperature 97.7 F 06/07/17 09:52 Pulse Rate 71 06/07/17 09:52 Respiratory Rate 18 06/07/17 09:52 Blood Pressure 106/68 06/07/17 09:52 O2 Sat by Pulse Oximetry (%) Laboratory Tests 06/07/17 06/07/17 06/07/17 07:30 07:30 07:30 WBC 8.1 RBC 4.77 Hgb 15.4 H Hct 45.2 MCV 94.9 MCH 32.3 MCHC 34.1 RDW 13.1 Plt Count 326 D MPV 8.0 Sodium 140 Potassium 4.2 Chloride 105 Carbon Dioxide 30 Anion Gap 5 L BUN 9 Creatinine 0.8 Creat Clearance w eGFR > 60 Random Glucose 72 L D Calcium 9.5 Total Bilirubin 0.7 D AST 19 D ALT 17 D Alkaline Phosphatase 74 Total Protein 7.1 Albumin 3.7 RPR Titer Nonreactive labs pending awake/alert ambulating no acute distress Assessment: 06/07/17 12:37 withdrawal sx gum sollen/red noted Plan: lidocaine s/s lidocaine patch naproxen bid ambysol gel for tooth amoxicillin po x 7 days continue detox increase fluids
[2017-06-07] MEDS ORDERED: BENZOCAINE 20 % GEL 9 GM TUBE MM PRN (12:42)
[2017-06-07] MEDS ORDERED: LIDOCAINE VISCOUS 2% ORAL/TOP 20 ML UNIT-DOSE CUP MM PRN (12:43)
--- NOTE | 2017-06-07 13:23 | CONSULT ---
[facility] Psychiatric Consult - Data Date of interview: 06/07/17 Admission source: [facility] Identifying data: This is 31 years old male with no psychiatric hospitalization history intoxicated with : Opioids, Cocaine, Cannabis, Xanax and Nicotine Substance Abuse History: - Smoking Cessation. Smoking history: Current every day smoker. Have you smoked in the past 12 months: Yes. Aproximately how many cigarettes per day: 30. Cigars Per Day: 0. Hx Chewing Tobacco Use: No. Initiated information on smoking cessation: Yes. 'Breaking Loose' booklet given : 06/06/17. - Substance & Tx. History. Hx Substance Use: No. Substance Use Type: Cocaine, Heroin, Tranquilizers. Hx Substance Use Treatment: Yes (02/17- [facility]). - Substances Abused. Heroin. Route: Inhalation. Frequency : Daily. Amount used: 1 BUNDLE. Age of first use: 29. Date of Last Use: 06/05. Crack. Route: Smoking. Frequency: Daily. Amount used: $20. Age of first use: 31. Date of Last Use: 06/05/17. Alprazolam (Xanax). Route: Oral. Frequency: Daily. Amount used: 4-6 MG. Age of first use: 27. Date of Last Use: 06/05/17. Oxycontin. Route: Oral. Frequency: 1-2 times per week. Amount used: 3 TABS. Age of first use: 27. Date of Last Use: 06/03/17. Marijuana/Hashish. Route: Smoking. Frequency: 1-3 times last 30 days. Amount used: 1 JOINT. Age of first use: 17. Date of Last Use: 06/04/17 Medical History: COPD Psychiatric History: Patient reports history of anxiety and depression, reports taking prior to admission: Seroquel 200mg po qhs. Ambien 10mg po qhs Physical/Sexual Abuse/Trauma History: Denies Additional Comment: Seroquel 200mg po qhs. Ambien 10mg po qhs Mental Status Exam - Mental Status Exam Alert and Oriented to: Person Cognitive Function: Fair Patient Appearance: Unkempt Mood: Anxious Affect: Normal Range Patient Behavior: Cooperative Speech Pattern: Appropriate Voice Loudness: Normal Thought Process: Goal Oriented Thought Disorder: Being Controlled Hallucinations: Denies Suicidal Ideation: Denies Homicidal Ideation: Denies Insight/Judgement: Fair Sleep: Difficulty falling asleep Appetite: Weight loss Muscle strength/Tone: Normal Gait/Station: Normal Additional Comments: Seroquel 200mg po qhs. Ambien 10mg po qhs Psychiatric Findings - Problem List ([place] 1, 2,3) (1) Nicotine dependence Current Visit: Yes Status: Chronic Qualifiers: Nicotine product type: cigarettes Substance use status: in withdrawal Qualified Code(s): F17.213 - Nicotine dependence, cigarettes, with withdrawal (2) Opioid dependence with withdrawal Current Visit: Yes Status: Chronic (3) Uncomplicated sedative, hypnotic or anxiolytic withdrawal Current Visit: Yes Status: Chronic (4) Substance induced mood disorder Current Visit: No Status: Acute (5) Substance-induced anxiety disorder Current Visit: No Status: Acute (6) Substance-induced sleep disorder Current Visit: No Status: Acute (7) Cannabis abuse Current Visit: No Status: Chronic (8) Cocaine abuse Current Visit: No Status: Chronic - Initial Treatment Plan Initial Treatment Plan: Seroquel 200mg po qhs. Ambien 10mg po qhs
[2017-06-07] MEDS ORDERED: LIDOCAINE 5% TOPICAL PATCH TP ONE (13:50)
[2017-06-07] MEDS ORDERED: NAPROXEN 500 MG TABLET (FP) PO ONE (13:51)
--- NOTE | 2017-06-07 15:59 | EKG ---
Test Reason : Blood Pressure : / mmHG Vent. Rate : 064 BPM Atrial Rate : 064 BPM P-R Int : 136 ms QRS Dur : 086 ms QT Int : 438 ms P-R-T Axes : -01 065 046 degrees QTc Int : 451 ms NORMAL SINUS RHYTHM NORMAL ECG WHEN COMPARED WITH ECG OF 17-FEB-2017 19:25, NO SIGNIFICANT CHANGE WAS FOUND Confirmed by KIMBERLY HUMPHREY MD ([id number]) on 06/07/2017 3:58:50 PM Referred By: Angel Millan Confirmed By:KIMBERLY HUMPHREY MD
[2017-06-07] MEDS: AMOX TR/POT CLAV 875MG/125MG TABLETS (FP) PO SCH (17:02)
[2017-06-07] MEDS: NICOTINE POLACRILEX 4 MG GUM BC PRN (17:19)
[2017-06-07] MEDS: ZOLPIDEM TARTRATE 10 MG TABLET (PARK CARE ONLY) PO PRN (22:29)
[2017-06-07] MEDS: NAPROXEN 500 MG TABLET (FP) PO SCH (22:30)
[2017-06-07] MEDS: QUEtiapine FUMARATE 200 MG TABLET PO SCH (22:30)
[2017-06-07] MEDS: THIAMINE HCL 100 MG TABLET (FP) PO SCH (22:30)
[2017-06-07] MEDS: LIDOCAINE PATCH REMOVAL MC SCH (22:30)
[2017-06-08] MEDS: diphenhydrAMINE HCL 50 MG CAPSULE PO PRN (01:00)
[2017-06-08] MEDS: diazePAM 5 MG TABLET PO PRN ×3 (01:00→17:03)
[2017-06-08] MEDS: ALBUTEROL SO4 18 GM HFA INHALER IH PRN (01:03)
[2017-06-08] MEDS: AMOX TR/POT CLAV 875MG/125MG TABLETS (FP) PO SCH ×2 (09:11→17:03)
--- NOTE | 2017-06-08 10:07 | PN ---
[facility] CIWA - CIWA Score Nausea/Vomitin Muscle Tremors: 4-Moderate,w/Arms Extend Anxiety: 4-Mod. Anxious/Guarded Agitation: 4-Moderately Restless Paroxysmal Sweats: 3 Orientation: 0-Oriented Tacttile Disturbances: 0-None Auditory Disturbances: 0-None Visual Disturbances: 0-None Headache: 0-None Present CIWA-Ar Total Score: 18 BHS COWS - Scale Resting Pulse: 1= [place] 81-100 Sweatin= Chills/Flushing Restless Observation: 1= Difficult to Sit Still Pupil Size: 1= Pupils >than Normal Bone or Joint Aches: 2= Severe Diffuse Aches Runny Nose/ Eye Tearin= Nasal Congestion GI Upset > 30mins: 2= Nausea/Diarrhea Tremor Observation of Outstretched Hands: 2= Slight Tremor Visible Yawning Observation: 1= 1-2x During Session Anxiety or Irritability: 2=Irritable/Anxious Goose Flesh Skin: 3=Piloerection COWS Score: 17 S Progress Note (SOAP) Subjective: nausea, sweats, interruped sleep, anxiety, tremors Objective: 06/08/17 10:07 Vital Signs - 24 hr 06/07/17 06/07/17 06/07/17 13:41 17:14 21:40 Temperature 97.7 F 97.7 F 98.1 F Pulse Rate 77 69 69 Respiratory 18 18 16 Rate Blood Pressure 126/73 100/50 113/66 06/08/17 06/08/17 06/08/17 00:30 03:30 07:18 Temperature 97.3 F L Pulse Rate 88 Respiratory 18 18 18 Rate Blood Pressure 108/50 Laboratory Tests 06/07/17 06/07/17 06/07/17 07:30 07:30 07:30 WBC 8.1 RBC 4.77 Hgb 15.4 H Hct 45.2 MCV 94.9 MCH 32.3 MCHC 34.1 RDW 13.1 Plt Count 326 D MPV 8.0 Sodium 140 Potassium 4.2 Chloride 105 Carbon Dioxide 30 Anion Gap 5 L BUN 9 Creatinine 0.8 Creat Clearance w eGFR > 60 Random Glucose 72 L D Calcium 9.5 Total Bilirubin 0.7 D AST 19 D ALT 17 D Alkaline Phosphatase 74 Total Protein 7.1 Albumin 3.7 RPR Titer Nonreactive Assessment: 06/08/17 10:07 withdrawal sx, body aches Plan: cont detox, fluids, pain meds for symptomatic relief
[2017-06-08] MEDS: PRENATAL VITAMINS W/ FOLIC ACID TABLET (FP) PO SCH (10:51)
[2017-06-08] MEDS: METHADONE HCL 5 MG TABLET (FOR DETOX USE ONLY) PO SCH (10:52)
[2017-06-08] MEDS: diazePAM 5 MG TABLET PO SCH ×2 (10:52→22:39)
[2017-06-08] MEDS: NAPROXEN 500 MG TABLET (FP) PO SCH ×2 (10:52→22:39)
[2017-06-08] MEDS: LIDOCAINE 5% TOPICAL PATCH TP SCH (10:53)
[2017-06-08] MEDS: NICOTINE 21 MG/24 HOURS TOPICAL PATCH TD SCH (10:53)
[2017-06-08] MEDS: GABAPENTIN 100 MG CAPSULE (FP) PO SCH ×2 (13:03→23:31)
[2017-06-08] MEDS: CYCLOBENZAPRINE HCL 5 MG TABLET PO SCH ×2 (13:03→22:40)
[2017-06-08] MEDS: NICOTINE POLACRILEX 4 MG GUM BC PRN (20:57)
[2017-06-08] MEDS: MAG HYDROX/AL HYDROX/SIMETH 30 ML UNIT-DOSE CUP PO PRN (21:52)
[2017-06-08] MEDS: THIAMINE HCL 100 MG TABLET (FP) PO SCH (22:38)
[2017-06-08] MEDS: ZOLPIDEM TARTRATE 10 MG TABLET (PARK CARE ONLY) PO PRN (22:39)
[2017-06-08] MEDS: QUEtiapine FUMARATE 200 MG TABLET PO SCH (22:39)
[2017-06-08] MEDS: LIDOCAINE PATCH REMOVAL MC SCH (23:30)
[2017-06-09] MEDS: GABAPENTIN 100 MG CAPSULE (FP) PO SCH ×3 (05:59→22:24)
[2017-06-09] MEDS: diazePAM 5 MG TABLET PO PRN ×3 (06:02→18:12)
[2017-06-09] MEDS: CYCLOBENZAPRINE HCL 5 MG TABLET PO SCH ×3 (06:04→22:24)
[2017-06-09] MEDS: AMOX TR/POT CLAV 875MG/125MG TABLETS (FP) PO SCH ×2 (07:53→17:14)
[2017-06-09 10:38] LABS: URINE APPEARANCE CLEAR; URINE BILIRUBIN NEGATIVE (NEGATIVE); URINE BLOOD NEGATIVE (NEGATIVE); URINE COLOR LT. YELLOW; URINE GLUCOSE (UA) NEGATIVE (NEGATIVE); URINE KETONE NEGATIVE (NEGATIVE); URINE LEUK ESTERASE NEGATIVE (NEGATIVE); URINE NITRITE NEGATIVE (NEGATIVE); URINE PROTEIN NEGATIVE (NEGATIVE)
[2017-06-09] MEDS: diazePAM 5 MG TABLET PO SCH ×2 (10:59→22:25)
[2017-06-09] MEDS: METHADONE HCL 5 MG TABLET (FOR DETOX USE ONLY) PO SCH (10:59)
[2017-06-09] MEDS: PRENATAL VITAMINS W/ FOLIC ACID TABLET (FP) PO SCH (10:59)
[2017-06-09] MEDS: NAPROXEN 500 MG TABLET (FP) PO SCH ×2 (10:59→22:24)
[2017-06-09] MEDS: NICOTINE 21 MG/24 HOURS TOPICAL PATCH TD SCH (11:00)
[2017-06-09] MEDS: LIDOCAINE 5% TOPICAL PATCH TP SCH (11:01)
[2017-06-09] MEDS: NICOTINE POLACRILEX 4 MG GUM BC PRN ×2 (14:11→23:42)
--- NOTE | 2017-06-09 14:58 | PN ---
[facility] Progress Note (SOAP) Subjective: alert,irritable,anxious,pain in the body,back,interrupted sleep Objective: 06/09/17 14:57 Vital Signs Temperature 96.4 F L 06/09/17 11:14 Pulse Rate 110 H 06/09/17 11:14 Respiratory Rate 16 06/09/17 11:14 Blood Pressure 113/73 06/09/17 11:14 O2 Sat by Pulse Oximetry (%) Assessment: 06/09/17 14:58 withdrawal symptom Plan: continue detox
[2017-06-09] MEDS: MAG HYDROX/AL HYDROX/SIMETH 30 ML UNIT-DOSE CUP PO PRN (18:13)
[2017-06-09] MEDS: ZOLPIDEM TARTRATE 10 MG TABLET (PARK CARE ONLY) PO PRN (22:23)
[2017-06-09] MEDS: QUEtiapine FUMARATE 200 MG TABLET PO SCH (22:24)
[2017-06-09] MEDS: LIDOCAINE PATCH REMOVAL MC SCH (22:24)
[2017-06-09] MEDS: THIAMINE HCL 100 MG TABLET (FP) PO SCH (22:25)
[2017-06-10] MEDS: CYCLOBENZAPRINE HCL 5 MG TABLET PO SCH (06:15)
[2017-06-10] MEDS: GABAPENTIN 100 MG CAPSULE (FP) PO SCH ×3 (06:15→22:15)
[2017-06-10] MEDS: AMOX TR/POT CLAV 875MG/125MG TABLETS (FP) PO SCH ×2 (07:57→17:31)
[2017-06-10] MEDS ORDERED: METHADONE HCL 10 MG TABLET (FOR DETOX USE ONLY) PO SCH (10:00)
[2017-06-10] MEDS ORDERED: diazePAM 5 MG TABLET PO SCH (10:00)
[2017-06-10] MEDS: PRENATAL VITAMINS W/ FOLIC ACID TABLET (FP) PO SCH (10:31)
[2017-06-10] MEDS: NAPROXEN 500 MG TABLET (FP) PO SCH ×2 (10:31→22:16)
[2017-06-10] MEDS: NICOTINE 21 MG/24 HOURS TOPICAL PATCH TD SCH (10:32)
--- NOTE | 2017-06-10 10:58 | PN ---
S Progress Note (SOAP) Subjective: ALERT,IRRITABLE,ANXIOUS,INTERRUPTED SLEEP Objective: 06/10/17 10:57 Vital Signs Temperature 96.1 F L 06/10/17 10:07 Pulse Rate 99 H 06/10/17 10:07 Respiratory Rate 18 06/10/17 10:07 Blood Pressure 111/76 06/10/17 10:07 O2 Sat by Pulse Oximetry (%) Assessment: 06/10/17 10:57 WITHDRAWAL SYMPTOM Plan: CONTINUE DETOX,DISCHARGE IN AM
[2017-06-10] MEDS: ALBUTEROL SO4 18 GM HFA INHALER IH PRN (13:25)
[2017-06-10] MEDS: LIDOCAINE 5% TOPICAL PATCH TP SCH (13:29)
[2017-06-10] MEDS: NICOTINE POLACRILEX 4 MG GUM BC PRN (13:29)
[2017-06-10] MEDS: CYCLOBENZAPRINE HCL 10 MG TABLET (FP) PO PRN ×2 (15:34→22:16)
[2017-06-10] MEDS: hydrOXYzine PAMOATE 50 MG CAPSULE (FP) PO PRN ×2 (15:34→22:16)
[2017-06-10] MEDS: ZOLPIDEM TARTRATE 10 MG TABLET (PARK CARE ONLY) PO PRN (21:23)
[2017-06-10] MEDS: LIDOCAINE PATCH REMOVAL MC SCH (21:29)
[2017-06-10] MEDS: THIAMINE HCL 100 MG TABLET (FP) PO SCH (22:15)
[2017-06-10] MEDS: QUEtiapine FUMARATE 200 MG TABLET PO SCH (22:16)
[2017-06-11] MEDS: GABAPENTIN 100 MG CAPSULE (FP) PO SCH (05:47)
[2017-06-11] MEDS: CYCLOBENZAPRINE HCL 10 MG TABLET (FP) PO PRN (05:51)
[2017-06-11] MEDS: hydrOXYzine PAMOATE 50 MG CAPSULE (FP) PO PRN (05:51)
[2017-06-11] MEDS ORDERED: METHADONE HCL 5 MG TABLET (FOR DETOX USE ONLY) PO SCH (06:00)
[2017-06-11] MEDS: AMOX TR/POT CLAV 875MG/125MG TABLETS (FP) PO SCH (07:58)
[2017-06-11] MEDS: LIDOCAINE 5% TOPICAL PATCH TP SCH (09:09)
[2017-06-11] MEDS: PRENATAL VITAMINS W/ FOLIC ACID TABLET (FP) PO SCH (09:09)
[2017-06-11] MEDS: NICOTINE 21 MG/24 HOURS TOPICAL PATCH TD SCH (09:09)
[2017-06-11] MEDS: NAPROXEN 500 MG TABLET (FP) PO SCH (09:09)
--- NOTE | 2017-06-11 09:41 | DS ---
[facility] Detox Discharge Summary Admission Date: 06/06/17 Discharge Date: 06/11/17 - History Present History: Cannabis Dependence, Cocaine Dependence, Opioid Dependence, Sedative Dependence - Physical Exam Results Vital Signs: Vital Signs Temperature 97.9 F 06/11/17 06:27 Pulse Rate 91 H 06/11/17 06:27 Respiratory Rate 16 06/11/17 06:27 Blood Pressure 118/71 06/11/17 06:27 O2 Sat by Pulse Oximetry (%) - Treatment Hospital Course: Detox Protocol Followed, Detoxed Safely, Responded well, Discharged Condition Good, Rehab Referral Accepted - Medication Discharge Medications: Ambulatory Orders Quetiapine Fumarate [Seroquel -] 200 mg PO HS #30 tab 02/19/17 Zolpidem Tartrate [Ambien] 10 mg PO HS PRN #14 tablet MDD 10 02/19/17 Albuterol Sulfate Inhaler - [Ventolin HFA Inhaler -] 2 puff IH Q4H PRN #1 inhaler 02/22/17 Quetiapine Fumarate [Seroquel -] 200 mg PO HS #30 tab 06/07/17 Zolpidem Tartrate [Ambien] 10 mg PO HS PRN #14 tablet MDD 10 06/07/17 - Diagnosis (1) Nicotine dependence Current Visit: Yes Status: Chronic Qualifiers: Nicotine product type: cigarettes Substance use status: uncomplicated Qualified Code(s): F17.210 - Nicotine dependence, cigarettes, uncomplicated (2) Opioid dependence with withdrawal Current Visit: Yes Status: Chronic (3) Uncomplicated sedative, hypnotic or anxiolytic withdrawal Current Visit: Yes Status: Chronic (4) COPD (chronic obstructive pulmonary disease) Current Visit: Yes Status: Chronic Qualifiers: COPD type: emphysema Emphysema type: unspecified Qualified Code( s): J43.9 - Emphysema, unspecified - AMA Did Patient Leave Against Medical Advice: No
[2017-06-11 10:48] VITALS: BP 109/68; PULSE 100; TEMP 97.3
== END 2017-06-11 09:35 | disposition home or self-care (01) | DRG 773 ==
LOC: YASAS 14:46 → Y6N 20:26
PROVIDERS: ADMIT Internal Medicine; ATTEND Internal Medicine Addiction Medicine
PROC: HZ2ZZZZ Detoxification Services for Substance Abuse Treatment (ICD-10-PCS; principal; 2017-06-06)
DX: F11.23 Opioid dependence with withdrawal (principal); F13.230 Sedative, hypnotic or anxiolytic dependence with withdrawal, uncomplicated; F14.20 Cocaine dependence, uncomplicated; F12.20 Cannabis dependence, uncomplicated; F17.210 Nicotine dependence, cigarettes, uncomplicated; F19.24 Other psychoactive substance dependence with psychoactive substance-induced mood disorder; F19.280 Other psychoactive substance dependence with psychoactive substance-induced anxiety disorder; F19.282 Other psychoactive substance dependence with psychoactive substance-induced sleep disorder; F34.1 Dysthymic disorder; R22.0 Localized swelling, mass and lump, head; M79.1 Myalgia
CPT/HCPCS: 36415; 80053; 81003; 85027; 86593; 90688; 93005; 93010; G0008

== ENCOUNTER 2017-07-30 14:35 | Inpatient (IN) | payer OTHER ==
[2017-07-30 17:03] VITALS: BMI 21.4
--- NOTE | 2017-07-30 19:16 | HP ---
COWS - Scale Resting Pulse: 0= [place] 80 or Below Sweatin= Chills/Flushing Restless Observation: 1= Difficult to Sit Still Pupil Size: 1= Pupils >than Normal Bone or Joint Aches: 2= Severe Diffuse Aches Runny Nose/ Eye Tearin= Runny Nose/Eyes GI Upset > 30mins: 3= Vomiting/Diarrhea Tremor Observation: 2= Slight Tremor Visible Yawning Observation: 0= None Anxiety or Irritability: 2=Irritable/Anxious Goose Flesh Skin: 0=Smooth Skin COWS Score: 14 Admission [facility] [place] [facility] Chief Complaint: withdrawal sx Allergies/Adverse Reactions: Allergies Allergy/AdvReac Type Severity Reaction Status Date / Time No Known Allergies Allergy Verified 06/06/17 20:10 History of Present Illness: 31 yeas old female with long history of heroin nicotine dependence has chronic back pain and copd and depression is admitted to detox Exam Limitations: No Limitations - Ebola screening Have you traveled outside of the country in the last 21 days: No Have you had contact with anyone from an Ebola affected area: No Have you been sick,other than usual withdrawal symptoms: No Do you have a fever: No - Review of Systems Constitutional: Loss of Appetite, Changes in sleep, Unintentional Wgt. Loss EENT: reports: No Symptoms Reported Respiratory: reports: SOB with Exertion, Productive cough (yellowish) Cardiac: reports: No Symptoms Reported GI: reports: Nausea, Poor Appetite, Poor Fluid Intake, Vomiting, Abdominal cramping : reports: No Symptoms Reported Musculoskeletal: reports: Back Pain, Joint Pain, Muscle Pain, Neck Pain Integumentary: reports: Bruising (right lateral chest wall = fell 07/22/17 at home) Neuro: reports: Tremors Endocrine: reports: No Symptoms Reported Hematology: reports: No Symptoms Reported Psychiatric: reports: Judgement Intact, Orientated x3, Anxious, Depressed Other Systems: Reviewed and Negative Patient History - Patient Medical History Hx Anemia: No Hx Asthma: No Hx Chronic Obstructive Pulmonary Disease (COPD): Yes Hx Cancer: No Hx Cardiac Disorders: No Hx Congestive Heart Failure: No Hx Hypertension: No Hx Hypercholesterolemia: No Hx Pacemaker: No HX Cerebrovascular Accident: No Hx Seizures: No Hx Dementia: No Hx Diabetes: No Hx Gastrointestinal Disorders: No Hx Liver Disease: No Hx Genitourinary Disorders: No Hx Sexually Transmitted Disorders: No Hx Renal Disease (ESRD): No Hx Thyroid Disease: No Hx Human Immunodeficiency Virus (HIV): No Hx Hepatitis C: No Hx Depression: Yes Hx Suicide Attempt: No Hx Bipolar Disorder: No Hx Schizophrenia: No - Patient Surgical History Past Surgical History: No Hx Neurologic Surgery: No Hx Cataract Extraction: No Hx Cardiac Surgery: No Hx Lung Surgery: No Hx Breast Surgery: No Hx Breast Biopsy: No Hx Abdominal Surgery: No Hx Appendectomy: No Hx Cholecystectomy: No Hx Genitourinary Surgery: No Hx Section: No Hx Orthopedic Surgery: No Hx Hysterectomy: No - PPD History Previous Implant?: Yes Documented Results: Negative w/proof Implanted On Prior [facility] Admission?: Yes Date: 08/27/16 Results: 0 mm PPD to be Administered?: No - Reproductive History Patient is a Female of Child Bearing Age (11 -55 yrs old): Yes Last Menstrual Period: 07/09/17 Patient : No - Smoking Cessation Smoking history: Current every day smoker Have you smoked in the past 12 months: Yes Aproximately how many cigarettes per day: 30 Cigars Per Day: 0 Hx Chewing Tobacco Use: No Initiated information on smoking cessation: Yes 'Breaking Loose' booklet given: 07/30/17 - Substance & Tx. History Hx Alcohol Use: No Hx Substance Use: Yes Substance Use Type: Cocaine, Heroin, Marijuana Hx Substance Use Treatment: Yes (05/2017 [facility] - Substances Abused Heroin Route: Inhalation Frequency: Daily Amount used: 20 bags Age of first use: 28 Date of Last Use: 07/29/17 Family Disease History - Family Disease History Family Disease History: Diabetes: Grandparent Admission Physical Exam S - Vital Signs Vital Signs: Vital Signs - 24 hr 07/30/17 16:58 Temperature 98.7 F Pulse Rate 74 Respiratory 18 Rate Blood Pressure 115/74 - Physical General Appearance: Yes: Appropriately Dressed, Mild Distress, Thin, Tremorous, Irritable, Sweating, Anxious HEENTM: Yes: Hearing grossly Normal, Normal ENT Inspection, Normocephalic, Normal Voice Respiratory: Yes: Chest Non-Tender, Lungs Clear, Normal Breath Sounds, No Respiratory Distress, No Accessory Muscle Use Neck: Yes: Supple, Trachea in good position Breast: Yes: Breasts Symetrical Cardiology: Yes: Regular Rhythm, Regular Rate, S1, S2 Abdominal: Yes: Normal Bowel Sounds, Non Tender, Soft Genitourinary: Yes: Within Normal Limits Back: Yes: Normal Inspection, Other (chronic back pain) Musculoskeletal: Yes: full range of Motion, Gait Steady, Back pain Extremities: Yes: Normal Inspection, Normal Range of Motion, Non-Tender, Tremors Neurological: Yes: Fully Oriented, Alert, Motor Strength 5/5, Normal Response, Depressed Affect Integumentary: Yes: Other (bruising right lateral rib) Lymphatic: Yes: Within Normal Limits - Diagnostic (1) Opioid dependence with withdrawal Current Visit: Yes Status: Acute (2) Chronic back pain Current Visit: Yes Status: Chronic Qualifiers: Back pain location: low back pain Back pain laterality: midline Sciatica presence: without sciatica Qualified Code(s): M54.5 - Low back pain; G89.29 - Other chronic pain; G89.29 - Other chronic pain (3) Weight loss Current Visit: Yes Status: Acute (4) Bruising Current Visit: Yes Status: Acute Comment: right lateral rib (5) COPD (chronic obstructive pulmonary disease) Current Visit: Yes Status: Chronic Qualifiers: COPD type: emphysema Emphysema type: unspecified Qualified Code(s): J43.9 - Emphysema, unspecified (6) Nicotine dependence Current Visit: Yes Status: Acute Qualifiers: Nicotine product type: cigarettes Substance use status: in withdrawal Qualified Code(s): F17.213 - Nicotine dependence, cigarettes, with withdrawal Cleared for Admission [facility] - Detox or Rehab [facility] Level of Care: Medically Managed Detox Regimen/Protocol: Methadone [facility] Breath Alcohol Content Breath Alcohol Content: 0 Urine Pregancy Test - Result Urine Test Results: Negative- NO Line Present Urine Drug Screen - Results Drug Screen Negative: No Urine Drug Screen Results: THC-Marijuana, MARY-Cocaine, OPI-Opiates, OXY- Oxycodone
[2017-07-30] MEDS ORDERED: ACETAMINOPHEN 325 MG TABLET (FP) PO PRN (19:23)
[2017-07-30] MEDS ORDERED: MAGNESIUM HYDROX 2400MG/30ML ORAL SUSPENSION 30 ML CUP PO PRN (19:23)
[2017-07-30] MEDS ORDERED: IBUPROFEN 400 MG TABLET (FP) PO PRN (19:23)
[2017-07-30] MEDS ORDERED: LOPERAMIDE HCL 2 MG CAPSULE PO PRN (19:23)
[2017-07-30] MEDS ORDERED: guaiFENesin/D-METHORPHAN HB 10 ML UNIT-DOSE CUPS PO PRN (19:23)
[2017-07-30] MEDS ORDERED: MAG HYDROX/AL HYDROX/SIMETH 30 ML UNIT-DOSE CUP PO PRN (19:23)
[2017-07-30] MEDS ORDERED: MENTHOL/PHENOL 1 EACH UD MM PRN (19:23)
[2017-07-30] MEDS ORDERED: MAGNESIUM CITRATE 300 ML BOTTLE PO PRN (19:23)
[2017-07-30] MEDS ORDERED: P-EPHED 60MG/TRIPROLIDI 2.5MG TABLET PO PRN (19:23)
[2017-07-30] MEDS ORDERED: METHADONE HCL 10 MG TABLET (FOR DETOX USE ONLY) PO ONE ×2 (19:23→23:00)
[2017-07-30] MEDS ORDERED: BACLOFEN 10 MG TABLET (FP) PO PRN (19:25)
[2017-07-30] MEDS: diazePAM 5 MG TABLET PO PRN (21:12)
[2017-07-30] MEDS: THIAMINE HCL 100 MG TABLET (FP) PO SCH (22:17)
[2017-07-30] MEDS: cloNIDine HCL 0.1 MG TABLET PO PRN (22:18)
[2017-07-30] MEDS: MINERAL OIL/PETROLAT/WATER TOPICAL CREAM 113 GM JAR TP SCH (22:43)
[2017-07-30] MEDS: LIDOCAINE PATCH REMOVAL MC SCH (22:44)
[2017-07-30 23:42] LABS: URINE APPEARANCE SLCLOUDY; URINE BILIRUBIN NEGATIVE (NEGATIVE); URINE BLOOD NEGATIVE (NEGATIVE); URINE COLOR DKYELLOW; URINE GLUCOSE (UA) NEGATIVE (NEGATIVE); URINE KETONE TRACE (NEGATIVE); URINE NITRITE NEGATIVE (NEGATIVE); URINE PROTEIN 1+ (NEGATIVE); URINE UROBILINOGEN NEGATIVE mg/dL (0.2-1.0)
[2017-07-30 23:45] LABS: URINE MUCUS RARE; URINE RBC < 1; URINE WBC 1
[2017-07-31] MEDS: diazePAM 5 MG TABLET PO PRN ×4 (05:39→20:31)
--- NOTE | 2017-07-31 09:48 | PN ---
[facility] COWS - Scale Resting Pulse: 0= [place] 80 or Below Sweatin= Chills/Flushing Restless Observation: 3= Extraneous Movement Pupil Size: 1= Pupils >than Normal Bone or Joint Aches: 2= Severe Diffuse Aches Runny Nose/ Eye Tearin= Runny Nose/Eyes GI Upset > 30mins: 3= Vomiting/Diarrhea Tremor Observation of Outstretched Hands: 1= Tremor [place], Not Seen Yawning Observation: 1= 1-2x During Session Anxiety or Irritability: 2=Irritable/Anxious Goose Flesh Skin: 0=Smooth Skin COWS Score: 16 S Progress Note (SOAP) Subjective: alert,irritable,anxious,interrupted sleep,tremor,pain in the body and back Objective: 07/31/17 09:46 Vital Signs Temperature 97.7 F 07/31/17 06:00 Pulse Rate 75 07/31/17 06:00 Respiratory Rate 16 07/31/17 06:00 Blood Pressure 103/68 07/31/17 06:00 O2 Sat by Pulse Oximetry (%) ekg nsr,normal ecg Laboratory Last Values Urine Color Dkyellow 07/30/17 23:20 Urine Appearance Slcloudy 07/30/17 23:20 Urine pH 5.0 (5.0-8.0) D 07/30/17 23:20 Ur Specific [place] 1.026 (1.001-1.035) 07/30/17 23:20 Urine Protein 1+ (NEGATIVE) H 07/30/17 23:20 Urine Glucose (UA) Negative (NEGATIVE) 07/30/17 23:20 Urine Ketones Trace (NEGATIVE) H 07/30/17 23:20 Urine Blood Negative (NEGATIVE) 07/30/17 23:20 Urine Nitrite Negative (NEGATIVE) 07/30/17 23:20 Urine Bilirubin Negative (NEGATIVE) 07/30/17 23:20 Urine Urobilinogen Negative mg/dL (0.2-1.0) 07/30/17 23:20 Urine WBC (Auto) 1 07/30/17 23:20 Urine RBC (Auto) < 1 07/30/17 23:20 Ur Epithelial Cells Moderate /hpf (FEW) 07/30/17 23:20 Urine Mucus Rare 07/30/17 23:20 labs pending Assessment: 07/31/17 09:47 withdrawal symptom Plan: continue detox
[2017-07-31] MEDS ORDERED: METHADONE HCL 10 MG TABLET (FOR DETOX USE ONLY) PO ONE (10:00)
[2017-07-31 10:01] LABS: MCH 31.8 pg (25.7-33.7); MCHC 33.6 g/dl (32.0-36.0); MEAN CELL VOLUME 94.6 fl (80-96); MEAN PLT VOLUME 8.3 fl (7.5-11.1); PLATELET COUNT 259 K/MM3 (134-434); RDW 13.4 % (11.6-15.6); WHITE BLOOD COUNT 9.6 K/mm3 (4.0-10.0)
[2017-07-31 10:18] LABS: URINE LEUK ESTERASE Negative (NEGATIVE)
[2017-07-31] MEDS: PRENATAL VITAMINS W/ FOLIC ACID TABLET (FP) PO SCH (10:21)
[2017-07-31] MEDS: LIDOCAINE 5% TOPICAL PATCH TP SCH (10:22)
[2017-07-31] MEDS: NICOTINE 21 MG/24 HOURS TOPICAL PATCH TD SCH (10:23)
[2017-07-31 10:40] LABS: ALBUMIN 3.9 g/dl (3.4-5.0); ALK PHOS 79 U/L (45-117); ANION GAP 9 (8-16); BILIRUBIN,TOTAL 0.8 mg/dL (0.2-1.0); CALCIUM 9.3 mg/dL (8.5-10.1); CO2 28 mmol/L (21-32); CREATININE 4.5 mg/dL (0.55-1.02); GLUCOSE,RANDOM 93 mg/dL (74-106); SGOT/AST 19 U/L (15-37); SGPT/ALT 18 U/L (12-78); TOT PROT 7.4 g/dl (6.4-8.2)
[2017-07-31] MEDS: cloNIDine HCL 0.1 MG TABLET PO SCH ×2 (10:49→22:20)
[2017-07-31] MEDS: CYCLOBENZAPRINE HCL 10 MG TABLET (FP) PO PRN ×2 (11:49→22:21)
[2017-07-31] MEDS: cloNIDine HCL 0.1 MG TABLET PO PRN (12:29)
[2017-07-31] MEDS: NICOTINE POLACRILEX 4 MG GUM BC PRN (13:38)
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
[2017-07-31] MEDS: METHYL SALICYLATE/MENTHOL OINT 30 GM TUBE TP SCH ×2 (14:41→22:24)
--- NOTE | 2017-07-31 14:41 | PN ---
[facility] Progress Note Note: Laboratory Last Values WBC 9.6 K/mm3 (4.0-10.0) 07/31/17 07:00 RBC 5.03 M/mm3 (3.60-5.2) 07/31/17 07:00 Hgb 16.0 GM/dL (10.7-15.3) H 07/31/17 07:00 Hct 47.5 % (32.4-45.2) H 07/31/17 07:00 MCV 94.6 fl (80-96) 07/31/17 07:00 MCH 31.8 pg (25.7-33.7) 07/31/17 07:00 MCHC 33.6 g/dl (32.0-36.0) 07/31/17 07:00 RDW 13.4 % (11.6-15.6) 07/31/17 07:00 Plt Count 259 K/MM3 (134-434) D 07/31/17 07:00 MPV 8.3 fl (7.5-11.1) 07/31/17 07:00 Sodium 142 mmol/L (136-145) 07/31/17 07:00 Potassium 4.6 mmol/L (3.5-5.1) 07/31/17 07:00 Chloride 105 mmol/L (98-107) 07/31/17 07:00 Carbon Dioxide 28 mmol/L (21-32) 07/31/17 07:00 Anion Gap 9 (8-16) 07/31/17 07:00 BUN 31 mg/dL (7-18) H D 07/31/17 07:00 Creatinine 4.5 mg/dL (0.55-1.02) H D 07/31/17 07:00 Creat Clearance w eGFR 11.48 (>60) 07/31/17 07:00 Random Glucose 93 mg/dL (74-106) D 07/31/17 07:00 Calcium 9.3 mg/dL (8.5-10.1) 07/31/17 07:00 Total Bilirubin 0.8 mg/dL (0.2-1.0) 07/31/17 07:00 AST 19 U/L (15-37) 07/31/17 07:00 ALT 18 U/L (12-78) 07/31/17 07:00 Alkaline Phosphatase 79 U/L (45-117) 07/31/17 07:00 Total Protein 7.4 g/dl (6.4-8.2) 07/31/17 07:00 Albumin 3.9 g/dl (3.4-5.0) 07/31/17 07:00 Urine Color Dkyellow 07/30/17 23:20 Urine Appearance Slcloudy 07/30/17 23:20 Urine pH 5.0 (5.0-8.0) D 07/30/17 23:20 Ur Specific [place] 1.026 (1.001-1.035) 07/30/17 23:20 Urine Protein 1+ (NEGATIVE) H 07/30/17 23:20 Urine Glucose (UA) Negative (NEGATIVE) 07/30/17 23:20 Urine Ketones Trace (NEGATIVE) H 07/30/17 23:20 Urine Blood Negative (NEGATIVE) 07/30/17 23:20 Urine Nitrite Negative (NEGATIVE) 07/30/17 23:20 Urine Bilirubin Negative (NEGATIVE) 07/30/17 23:20 Urine Urobilinogen Negative mg/dL (0.2-1.0) 07/30/17 23:20 Ur Leukocyte Esterase Negative (NEGATIVE) 07/30/17 23:20 Urine WBC (Auto) 1 07/30/17 23:20 Urine RBC (Auto) < 1 07/30/17 23:20 Ur Epithelial Cells Moderate /hpf (FEW) 07/30/17 23:20 Urine Mucus Rare 07/30/17 23:20 RPR Titer Nonreactive (NONREACTIVE) 07/31/17 07:00 WILL D/C MAGNESIUM PRODUCT,ENCOURAGE ORAL FLUID AND WATER,REPEAT CMP IN AM
[2017-07-31] MEDS ORDERED: QUEtiapine FUMARATE 200 MG TABLET PO SCH (22:00)
[2017-07-31] MEDS: QUEtiapine FUMARATE 200 MG TABLET PO SCH (22:20)
[2017-07-31] MEDS: THIAMINE HCL 100 MG TABLET (FP) PO SCH (22:20)
[2017-07-31] MEDS: ALBUTEROL SO4 18 GM HFA INHALER IH PRN (22:21)
[2017-07-31] MEDS: MINERAL OIL/PETROLAT/WATER TOPICAL CREAM 113 GM JAR TP SCH (22:24)
[2017-07-31] MEDS: LIDOCAINE PATCH REMOVAL MC SCH (22:25)
[2017-08-01] MEDS: diazePAM 5 MG TABLET PO PRN ×6 (01:23→22:16)
--- NOTE | 2017-08-01 09:57 | PN ---
BHS COWS - Scale Resting Pulse: 0= IN 80 or Below Sweatin= Chills/Flushing Restless Observation: 3= Extraneous Movement Pupil Size: 1= Pupils >than Normal Bone or Joint Aches: 2= Severe Diffuse Aches Runny Nose/ Eye Tearin= Runny Nose/Eyes GI Upset > 30mins: 3= Vomiting/Diarrhea Tremor Observation of Outstretched Hands: 2= Slight Tremor Visible Yawning Observation: 1= 1-2x During Session Anxiety or Irritability: 2=Irritable/Anxious Goose Flesh Skin: 0=Smooth Skin COWS Score: 17 BHS Progress Note (SOAP) Subjective: ALERT,IRRITABLE,ANXIOUS,INTERRUPTED SLEEP,TREMOR,PAIN IN THE BODY AND BACK Objective: 08/01/17 09:54 Vital Signs Temperature 97.3 F L 08/01/17 06:18 Pulse Rate 80 08/01/17 06:18 Respiratory Rate 18 08/01/17 06:18 Blood Pressure 137/65 08/01/17 06:18 O2 Sat by Pulse Oximetry (%) Laboratory Last Values WBC 9.6 K/mm3 (4.0-10.0) 07/31/17 07:00 RBC 5.03 M/mm3 (3.60-5.2) 07/31/17 07:00 Hgb 16.0 GM/dL (10.7-15.3) H 07/31/17 07:00 Hct 47.5 % (32.4-45.2) H 07/31/17 07:00 MCV 94.6 fl (80-96) 07/31/17 07:00 MCH 31.8 pg (25.7-33.7) 07/31/17 07:00 MCHC 33.6 g/dl (32.0-36.0) 07/31/17 07:00 RDW 13.4 % (11.6-15.6) 07/31/17 07:00 Plt Count 259 K/MM3 (134-434) D 07/31/17 07:00 MPV 8.3 fl (7.5-11.1) 07/31/17 07:00 Sodium 142 mmol/L (136-145) 07/31/17 07:00 Potassium 4.6 mmol/L (3.5-5.1) 07/31/17 07:00 Chloride 105 mmol/L (98-107) 07/31/17 07:00 Carbon Dioxide 28 mmol/L (21-32) 07/31/17 07:00 Anion Gap 9 (8-16) 07/31/17 07:00 BUN 31 mg/dL (7-18) H D 07/31/17 07:00 Creatinine 4.5 mg/dL (0.55-1.02) H D 07/31/17 07:00 Creat Clearance w eGFR 11.48 (>60) 07/31/17 07:00 Random Glucose 93 mg/dL (74-106) D 07/31/17 07:00 Calcium 9.3 mg/dL (8.5-10.1) 07/31/17 07:00 Total Bilirubin 0.8 mg/dL (0.2-1.0) 07/31/17 07:00 AST 19 U/L (15-37) 07/31/17 07:00 ALT 18 U/L (12-78) 07/31/17 07:00 Alkaline Phosphatase 79 U/L (45-117) 07/31/17 07:00 Total Protein 7.4 g/dl (6.4-8.2) 07/31/17 07:00 Albumin 3.9 g/dl (3.4-5.0) 07/31/17 07:00 Urine Color Dkyellow 07/30/17 23:20 Urine Appearance Slcloudy 07/30/17 23:20 Urine pH 5.0 (5.0-8.0) D 07/30/17 23:20 Ur Specific [place] 1.026 (1.001-1.035) 07/30/17 23:20 Urine Protein 1+ (NEGATIVE) H 07/30/17 23:20 Urine Glucose (UA) Negative (NEGATIVE) 07/30/17 23:20 Urine Ketones Trace (NEGATIVE) H 07/30/17 23:20 Urine Blood Negative (NEGATIVE) 07/30/17 23:20 Urine Nitrite Negative (NEGATIVE) 07/30/17 23:20 Urine Bilirubin Negative (NEGATIVE) 07/30/17 23:20 Urine Urobilinogen Negative mg/dL (0.2-1.0) 07/30/17 23:20 Ur Leukocyte Esterase Negative (NEGATIVE) 07/30/17 23:20 Urine WBC (Auto) 1 07/30/17 23:20 Urine RBC (Auto) < 1 07/30/17 23:20 Ur Epithelial Cells Moderate /hpf (FEW) 07/30/17 23:20 Urine Mucus Rare 07/30/17 23:20 RPR Titer Nonreactive (NONREACTIVE) 07/31/17 07:00 Assessment: 08/01/17 09:56 WITHDRAWAL SYMPTOM Plan: CONTINUE DETOX,ENCOURAGE ORAL FLUID,CMP WAITING
[2017-08-01] MEDS ORDERED: METHADONE HCL 5 MG TABLET (FOR DETOX USE ONLY) PO ONE (10:00)
[2017-08-01] MEDS: cloNIDine HCL 0.1 MG TABLET PO SCH ×2 (10:21→22:17)
[2017-08-01] MEDS: PRENATAL VITAMINS W/ FOLIC ACID TABLET (FP) PO SCH (10:21)
[2017-08-01 10:22] LABS: ALBUMIN 3.5 g/dl (3.4-5.0); ALK PHOS 81 U/L (45-117); ANION GAP 8 (8-16); BILIRUBIN,TOTAL 0.4 mg/dL (0.2-1.0); CALCIUM 8.6 mg/dL (8.5-10.1); CO2 26 mmol/L (21-32); CREATININE 0.8 mg/dL (0.55-1.02); GLUCOSE,RANDOM 62 mg/dL (74-106); SGOT/AST 15 U/L (15-37); SGPT/ALT 17 U/L (12-78); TOT PROT 6.7 g/dl (6.4-8.2)
[2017-08-01] MEDS: METHYL SALICYLATE/MENTHOL OINT 30 GM TUBE TP SCH ×2 (10:22→22:18)
[2017-08-01] MEDS: NICOTINE 21 MG/24 HOURS TOPICAL PATCH TD SCH (10:22)
[2017-08-01] MEDS: LIDOCAINE 5% TOPICAL PATCH TP SCH (10:22)
[2017-08-01] MEDS: ALBUTEROL SO4 18 GM HFA INHALER IH PRN ×2 (10:25→22:19)
--- NOTE | 2017-08-01 11:18 | PN ---
Psychiatric Progress Note Vital Signs: Vital Signs Period Temp Pulse Resp BP Sys/Ulrich Pulse Ox Last 24 Hr 96.9 F-98.1 F 78-90 18-18 100-137/59-73 Date of Session: 08/01/17 Chief Complaint:: Insomnia HPI: Patient reports inssomnia, reports using Ambien 10mg po qhs prior to admission with good response Current Medications: Active Medications Generic Name Dose Route Start Last Admin Trade Name Freq PRN Reason Stop Dose Admin Acetaminophen 650 mg 07/30/17 19:23 Tylenol - PO Q4H PRN FEVER OR PAIN Albuterol Sulfate 2 puff 07/31/17 14:46 08/01/17 10:25 Ventolin Hfa Inhaler - IH 2 puff Q4H PRN Administration SHORT OF BREATH/WHEEZING Baclofen 10 mg 07/30/17 19:25 07/30/17 22:17 Lioresal - PO 10 mg TID PRN Administration BACK PAIN Clonidine 0.1 mg 07/31/17 10:21 08/01/17 10:21 Catapres - PO 0.1 mg BID BUBBA Administration Cyclobenzaprine HCl 10 mg 07/31/17 09:48 07/31/17 22:21 Flexeril - PO 10 mg TID PRN Administration MUSCLE SPASMS Diazepam 10 mg 07/30/17 19:23 08/01/17 11:06 Valium - PO 08/02/17 19:22 10 mg Q4H PRN Administration WITHDRAWAL(CONT SUBST) Eucalyptus/Menthol/Phenol/Sorbitol 1 each 07/30/17 19:23 Cepastat Lozenge - MM Q4H PRN SORE THROAT Guaifenesin 10 ml 07/30/17 19:23 Robitussin Dm - PO Q6H PRN COUGH Ibuprofen 400 mg 07/30/17 19:23 Motrin - PO Q6H PRN SEVERE PAIN Lidocaine 1 patch 07/31/17 10:00 08/01/17 10:22 Lidoderm Patch - TP 1 patch DAILY BUBBA Administration Loperamide HCl 4 mg 07/30/17 19:23 Imodium - PO Q6H PRN DIARRHEA Methadone HCl 5 mg 08/04/17 06:00 Dolophine - PO 08/04/17 06:01 ONCE@0600 ONE Methadone HCl 15 mg 08/02/17 10:00 Dolophine - PO 08/02/17 10:01 ONCE ONE Methadone HCl 10 mg 08/03/17 10:00 Dolophine - PO 08/03/17 10:01 ONCE ONE Methyl Salicylate 1 applic 07/31/17 12:00 08/01/17 10:22 Rolly-Allen - TP 1 applic BID BUBBA Administration Miscellaneous 1 each 07/30/17 22:00 07/31/17 22:25 Lidoderm Patch Removal MC Not Given DAILY@2200 [facility] Multi-Ingredient Lotion 1 applic 07/30/17 22:00 07/31/17 22:24 Eucerin (Small Jar) - TP 1 applic HS BUBBA Administration Nicotine 21 mg 07/31/17 10:00 08/01/17 10:22 Nicoderm Patch - TD 21 mg DAILY BUBBA Administration Nicotine Polacrilex 4 mg 07/30/17 19:23 07/31/17 13:38 Nicorette Gum - BC 4 mg Q2H PRN Administration NICOTINE REPLACEMENT RX Multivit/Folic Acid/Iron 1 tab 07/31/17 10:00 08/01/17 10:21 Vitamins (Sjr) - PO 1 tab DAILY BUBBA Administration Pseudoephedrine/Triprolidine 1 combo 07/30/17 19:23 Actifed - PO TID PRN NASAL CONGESTION Quetiapine Fumarate 200 mg 07/31/17 22:00 07/31/17 22:20 Seroquel - PO 200 mg HS BUBBA Administration Thiamine HCl 100 mg 07/30/17 22:00 07/31/17 22:20 Vitamin B1 - PO 100 mg HS BUBBA Administration Zolpidem Tartrate 10 mg 08/01/17 11:11 Ambien - PO HS PRN INSOMNIA Medication(s) Change(s): Ambien 10mg po qhs Mental Status Exam - Mental Status Exam Alert and Oriented to: Person Cognitive Function: Fair Patient Appearance: Unkempt Mood: Apprehensive Affect: Mood Congruent Patient Behavior: Cooperative Speech Pattern: Appropriate Voice Loudness: Normal Thought Process: Goal Oriented Thought Disorder: Being Controlled Hallucinations: Denies Suicidal Ideation: Denies Homicidal Ideation: Denies Insight/Judgement: Fair Sleep: Difficulty falling asleep Appetite: Weight loss Muscle strength/Tone: Normal Gait/Station: Normal Additional Comments: Ambien 10mg po qhs Psychiatric Treatment Plan - Problem List (1) Cannabis abuse Current Visit: Yes (2) Cocaine abuse Current Visit: Yes (3) Nicotine dependence Current Visit: Yes Qualifiers: Nicotine product type: cigarettes Substance use status: in withdrawal Qualified Code(s): F17.213 - Nicotine dependence, cigarettes, with withdrawal (4) Opioid dependence with withdrawal Current Visit: Yes (5) Substance induced mood disorder Current Visit: Yes (6) Substance-induced anxiety disorder Current Visit: No (7) Substance-induced sleep disorder Current Visit: No (8) Opioid dependence with withdrawal Current Visit: No Initial treatment plan: Ambien 10mg po qhs
--- NOTE | 2017-08-01 11:39 | EKG ---
Test Reason : Blood Pressure : / mmHG Vent. Rate : 074 BPM Atrial Rate : 074 BPM P-R Int : 120 ms QRS Dur : 098 ms QT Int : 400 ms P-R-T Axes : -02 083 068 degrees QTc Int : 444 ms NORMAL SINUS RHYTHM NORMAL ECG WHEN COMPARED WITH ECG OF 06-JUN-2017 20:55, NO SIGNIFICANT CHANGE WAS FOUND Confirmed by CHARLI HARO MD ([id number]) on 08/01/2017 11:38:56 AM Referred By: Confirmed By:CHARLI HARO MD
[2017-08-01] MEDS: CYCLOBENZAPRINE HCL 10 MG TABLET (FP) PO PRN ×2 (15:01→22:17)
[2017-08-01] MEDS: NICOTINE POLACRILEX 4 MG GUM BC PRN (21:02)
[2017-08-01] MEDS ORDERED: ZOLPIDEM TARTRATE 5 MG TABLET PO PRN (22:00)
[2017-08-01] MEDS: MINERAL OIL/PETROLAT/WATER TOPICAL CREAM 113 GM JAR TP SCH (22:17)
[2017-08-01] MEDS: LIDOCAINE PATCH REMOVAL MC SCH (22:17)
[2017-08-01] MEDS: THIAMINE HCL 100 MG TABLET (FP) PO SCH (22:17)
[2017-08-01] MEDS: QUEtiapine FUMARATE 200 MG TABLET PO SCH (22:17)
[2017-08-01] MEDS: ZOLPIDEM TARTRATE 10 MG TABLET (PARK CARE ONLY) PO PRN (22:17)
[2017-08-02] MEDS: diazePAM 5 MG TABLET PO PRN ×4 (05:16→19:22)
[2017-08-02] MEDS: CYCLOBENZAPRINE HCL 10 MG TABLET (FP) PO PRN ×2 (05:16→22:21)
--- NOTE | 2017-08-02 08:45 | PN ---
BHS Progress Note (SOAP) Subjective: ALERT,IRRITABLE,ANXIOUS,PAIN IN BODY,RIGHT RIBS CAGE,FELL AT HOME,INTERRUPTED SLEEP Objective: 08/02/17 08:43 Vital Signs Temperature 97.7 F 08/02/17 06:10 Pulse Rate 88 08/02/17 06:10 Respiratory Rate 18 08/02/17 06:10 Blood Pressure 115/75 08/02/17 06:10 O2 Sat by Pulse Oximetry (%) Laboratory Results - last 24 hr 08/01/17 07:00 Sodium 142 Potassium 3.8 Chloride 108 H Carbon Dioxide 26 Anion Gap 8 BUN 15 D Creatinine 0.8 D Creat Clearance w eGFR > 60 Random Glucose 62 L D Calcium 8.6 Total Bilirubin 0.4 D AST 15 D ALT 17 Alkaline Phosphatase 81 Total Protein 6.7 Albumin 3.5 Assessment: 08/02/17 08:44 WITHDRAWAL SYMPTOM Plan: CONTINUE DETOX,CHEST AND RIGHT RIB TODAY R.O FX
[2017-08-02] MEDS ORDERED: METHADONE HCL 5 MG TABLET (FOR DETOX USE ONLY) PO ONE (10:00)
[2017-08-02] MEDS: PRENATAL VITAMINS W/ FOLIC ACID TABLET (FP) PO SCH (10:14)
[2017-08-02] MEDS: cloNIDine HCL 0.1 MG TABLET PO SCH ×2 (10:14→22:21)
[2017-08-02] MEDS: METHYL SALICYLATE/MENTHOL OINT 30 GM TUBE TP SCH ×2 (10:15→22:22)
[2017-08-02] MEDS: LIDOCAINE 5% TOPICAL PATCH TP SCH (10:16)
[2017-08-02] MEDS: NICOTINE 21 MG/24 HOURS TOPICAL PATCH TD SCH (10:16)
[2017-08-02] MEDS: ALBUTEROL SO4 18 GM HFA INHALER IH PRN ×2 (10:17→22:24)
[2017-08-02] MEDS: hydrOXYzine PAMOATE 50 MG CAPSULE (FP) PO PRN ×2 (14:22→21:18)
[2017-08-02] MEDS: NICOTINE POLACRILEX 4 MG GUM BC PRN (19:25)
[2017-08-02] MEDS: THIAMINE HCL 100 MG TABLET (FP) PO SCH (22:21)
[2017-08-02] MEDS: QUEtiapine FUMARATE 200 MG TABLET PO SCH (22:21)
[2017-08-02] MEDS: ZOLPIDEM TARTRATE 10 MG TABLET (PARK CARE ONLY) PO PRN (22:21)
[2017-08-02] MEDS: LIDOCAINE PATCH REMOVAL MC SCH (22:21)
[2017-08-02] MEDS: MINERAL OIL/PETROLAT/WATER TOPICAL CREAM 113 GM JAR TP SCH (22:26)
[2017-08-03] MEDS: CYCLOBENZAPRINE HCL 10 MG TABLET (FP) PO PRN ×3 (05:12→22:12)
[2017-08-03] MEDS: hydrOXYzine PAMOATE 50 MG CAPSULE (FP) PO PRN ×3 (05:12→17:51)
--- NOTE | 2017-08-03 09:53 | PN ---
S Progress Note (SOAP) Subjective: alert,irritable,less pain in the right chest wall x ray of right ribs on 08/02/17 is negative Objective: 08/03/17 09:52 Vital Signs Temperature 96.8 F L 08/03/17 05:51 Pulse Rate 80 08/03/17 05:51 Respiratory Rate 18 08/03/17 05:51 Blood Pressure 105/63 08/03/17 05:51 O2 Sat by Pulse Oximetry (%) Assessment: 08/03/17 09:52 withdrawal symptom Plan: continue detox,discharge in am
[2017-08-03] MEDS ORDERED: METHADONE HCL 10 MG TABLET (FOR DETOX USE ONLY) PO ONE (10:00)
[2017-08-03] MEDS: PRENATAL VITAMINS W/ FOLIC ACID TABLET (FP) PO SCH (10:18)
[2017-08-03] MEDS: METHYL SALICYLATE/MENTHOL OINT 30 GM TUBE TP SCH ×2 (10:18→22:10)
[2017-08-03] MEDS: cloNIDine HCL 0.1 MG TABLET PO SCH ×2 (10:18→22:09)
[2017-08-03] MEDS: LIDOCAINE 5% TOPICAL PATCH TP SCH (10:20)
[2017-08-03] MEDS: NICOTINE 21 MG/24 HOURS TOPICAL PATCH TD SCH (10:20)
[2017-08-03] MEDS: ZOLPIDEM TARTRATE 10 MG TABLET (PARK CARE ONLY) PO PRN (22:09)
[2017-08-03] MEDS: QUEtiapine FUMARATE 200 MG TABLET PO SCH (22:09)
[2017-08-03] MEDS: MINERAL OIL/PETROLAT/WATER TOPICAL CREAM 113 GM JAR TP SCH (22:10)
[2017-08-03] MEDS: THIAMINE HCL 100 MG TABLET (FP) PO SCH (22:10)
[2017-08-03] MEDS: LIDOCAINE PATCH REMOVAL MC SCH (22:10)
[2017-08-04] MEDS: CYCLOBENZAPRINE HCL 10 MG TABLET (FP) PO PRN (05:49)
[2017-08-04] MEDS ORDERED: METHADONE HCL 5 MG TABLET (FOR DETOX USE ONLY) PO ONE (06:00)
--- NOTE | 2017-08-04 09:41 | DS ---
[facility] Detox Discharge Summary Admission Date: 07/30/17 Discharge Date: 08/04/17 - History Present History: Opioid Dependence, Sedative Dependence Pertinent Past History: COPD - Physical Exam Results Vital Signs: Vital Signs Temperature 96.8 F L 08/04/17 06:00 Pulse Rate 87 08/04/17 06:00 Respiratory Rate 16 08/04/17 06:00 Blood Pressure 117/62 08/04/17 06:00 O2 Sat by Pulse Oximetry (%) Pertinent Admission Physical Exam Findings: Withdrawal sx. Laboratory Last Values WBC 9.6 K/mm3 (4.0-10.0) 07/31/17 07:00 RBC 5.03 M/mm3 (3.60-5.2) 07/31/17 07:00 Hgb 16.0 GM/dL (10.7-15.3) H 07/31/17 07:00 Hct 47.5 % (32.4-45.2) H 07/31/17 07:00 MCV 94.6 fl (80-96) 07/31/17 07:00 MCH 31.8 pg (25.7-33.7) 07/31/17 07:00 MCHC 33.6 g/dl (32.0-36.0) 07/31/17 07:00 RDW 13.4 % (11.6-15.6) 07/31/17 07:00 Plt Count 259 K/MM3 (134-434) D 07/31/17 07:00 MPV 8.3 fl (7.5-11.1) 07/31/17 07:00 Sodium 142 mmol/L (136-145) 08/01/17 07:00 Potassium 3.8 mmol/L (3.5-5.1) 08/01/17 07:00 Chloride 108 mmol/L (98-107) H 08/01/17 07:00 Carbon Dioxide 26 mmol/L (21-32) 08/01/17 07:00 Anion Gap 8 (8-16) 08/01/17 07:00 BUN 15 mg/dL (7-18) D 08/01/17 07:00 Creatinine 0.8 mg/dL (0.55-1.02) D 08/01/17 07:00 Creat Clearance w eGFR > 60 (>60) 08/01/17 07:00 Random Glucose 62 mg/dL (74-106) L D 08/01/17 07:00 Calcium 8.6 mg/dL (8.5-10.1) 08/01/17 07:00 Total Bilirubin 0.4 mg/dL (0.2-1.0) D 08/01/17 07:00 AST 15 U/L (15-37) D 08/01/17 07:00 ALT 17 U/L (12-78) 08/01/17 07:00 Alkaline Phosphatase 81 U/L (45-117) 08/01/17 07:00 Total Protein 6.7 g/dl (6.4-8.2) 08/01/17 07:00 Albumin 3.5 g/dl (3.4-5.0) 08/01/17 07:00 Urine Color Dkyellow 07/30/17 23:20 Urine Appearance Slcloudy 07/30/17 23:20 Urine pH 5.0 (5.0-8.0) D 07/30/17 23:20 Ur Specific [place] 1.026 (1.001-1.035) 07/30/17 23:20 Urine Protein 1+ (NEGATIVE) H 07/30/17 23:20 Urine Glucose (UA) Negative (NEGATIVE) 07/30/17 23:20 Urine Ketones Trace (NEGATIVE) H 07/30/17 23:20 Urine Blood Negative (NEGATIVE) 07/30/17 23:20 Urine Nitrite Negative (NEGATIVE) 07/30/17 23:20 Urine Bilirubin Negative (NEGATIVE) 07/30/17 23:20 Urine Urobilinogen Negative mg/dL (0.2-1.0) 07/30/17 23:20 Ur Leukocyte Esterase Negative (NEGATIVE) 07/30/17 23:20 Urine WBC (Auto) 1 07/30/17 23:20 Urine RBC (Auto) < 1 07/30/17 23:20 Ur Epithelial Cells Moderate /hpf (FEW) 07/30/17 23:20 Urine Mucus Rare 07/30/17 23:20 RPR Titer Nonreactive (NONREACTIVE) 07/31/17 07:00 labs noted - Treatment Hospital Course: Detox Protocol Followed, Detoxed Safely, Responded well, Discharged Condition Good, Rehab Referral Accepted Patient has Accepted a Rehab Referral to: OTP at [facility] - Medication Discharge Medications: Ambulatory Orders Quetiapine Fumarate [Seroquel -] 200 mg PO HS #30 tab 02/19/17 Zolpidem Tartrate [Ambien] 10 mg PO HS PRN #14 tablet MDD 10 02/19/17 Albuterol Sulfate Inhaler - [Ventolin HFA Inhaler -] 2 puff IH Q4H PRN #1 inhaler 02/22/17 Quetiapine Fumarate [Seroquel -] 200 mg PO HS #30 tab 06/07/17 Cyclobenzaprine HCl 5 mg PO TID #30 tablet 06/11/17 Naproxen [Naprosyn -] 500 mg PO BID #60 tablet 06/11/17 Quetiapine Fumarate [Seroquel -] 200 mg PO HS #30 tab 07/31/17 Zolpidem Tartrate [Ambien] 0 mg PO HS #14 tablet MDD 10 08/01/17 - Diagnosis (1) Substance induced mood disorder Current Visit: Yes Status: Acute (2) COPD (chronic obstructive pulmonary disease) Current Visit: Yes Status: Chronic Qualifiers: COPD type: emphysema Emphysema type: unspecified Qualified Code(s): J43.9 - Emphysema, unspecified (3) Opioid dependence with withdrawal Current Visit: Yes Status: Acute (4) Uncomplicated sedative, hypnotic or anxiolytic withdrawal Current Visit: Yes Status: Acute - AMA Did Patient Leave Against Medical Advice: No
[2017-08-04] MEDS: cloNIDine HCL 0.1 MG TABLET PO SCH (10:25)
[2017-08-04] MEDS: PRENATAL VITAMINS W/ FOLIC ACID TABLET (FP) PO SCH (10:25)
[2017-08-04] MEDS: METHYL SALICYLATE/MENTHOL OINT 30 GM TUBE TP SCH (10:25)
[2017-08-04] MEDS: LIDOCAINE 5% TOPICAL PATCH TP SCH (10:26)
[2017-08-04] MEDS: NICOTINE 21 MG/24 HOURS TOPICAL PATCH TD SCH (10:26)
[2017-08-04 10:49] VITALS: BP 103/69; PULSE 97; TEMP 97.3
== END 2017-08-04 11:15 | disposition home or self-care (01) | DRG 773 ==
LOC: YASAS 14:35 → Y6N 20:23
PROVIDERS: ADMIT Internal Medicine; ATTEND Internal Medicine
PROC: HZ2ZZZZ Detoxification Services for Substance Abuse Treatment (ICD-10-PCS; principal; 2017-07-30)
DX: F11.23 Opioid dependence with withdrawal (principal); F13.230 Sedative, hypnotic or anxiolytic dependence with withdrawal, uncomplicated; F14.10 Cocaine abuse, uncomplicated; F12.10 Cannabis abuse, uncomplicated; F17.210 Nicotine dependence, cigarettes, uncomplicated; F19.24 Other psychoactive substance dependence with psychoactive substance-induced mood disorder; J43.9 Emphysema, unspecified; G47.00 Insomnia, unspecified; S20.211A Contusion of right front wall of thorax, initial encounter; X58.XXXA Exposure to other specified factors, initial encounter; Y93.9 Activity, unspecified; Y92.9 Unspecified place or not applicable; R63.4 Abnormal weight loss; Z68.1 Body mass index [BMI] 19.9 or less, adult
CPT/HCPCS: 36415; 71101-TC-RT; 80053; 81003; 81015; 85027; 86593; 93005; 93010; J0475

== ENCOUNTER 2017-10-13 17:51 | Inpatient (IN) | payer OTHER ==
[2017-10-13 18:18] VITALS: BMI 21.6
--- NOTE | 2017-10-13 18:44 | HP ---
COWS - Scale Resting Pulse: 4= [place] > 121 Sweatin=Flushed/Facial Moisture Restless Observation: 1= Difficult to Sit Still Pupil Size: 2= Moderately Dilated Bone or Joint Aches: 2= Severe Diffuse Aches Runny Nose/ Eye Tearin= Runny Nose/Eyes GI Upset > 30mins: 2= Nausea/Diarrhea Tremor Observation: 2= Slight Tremor Visible Yawning Observation: 1= 1-2x During Session Anxiety or Irritability: 2=Irritable/Anxious Goose Flesh Skin: 0=Smooth Skin COWS Score: 20 CIWA Score - CIWA Score Nausea/Vomitin Muscle Tremors: 3 Anxiety: 4-Mod. Anxious/Guarded Agitation: 4-Moderately Restless Paroxysmal Sweats: 3 Orientation: 0-Oriented Tacttile Disturbances: 0-None Auditory Disturbances: 0-None Visual Disturbances: 0-None Headache: 0-None Present CIWA-Ar Total Score: 17 Admission ROS BHS - HPI Chief Complaint: Withdrawal sx. Allergies/Adverse Reactions: Allergies Allergy/AdvReac Type Severity Reaction Status Date / Time No Known Allergies Allergy Verified 07/30/17 20:30 History of Present Illness: 31 y/o woman with a long hx. of heroin & alcohol dependence is admitted for detox. Pt. has been in previous detox,denies significant period drug free. UDS is negative for opiate because pt. last used on 10/10/17. She was here previously & tested + for opiate and given methadone for detox. On the basis of hx. and withdrawal sx. with dilated pupils, we'll use methadone for detox. Exam Limitations: No Limitations - Ebola screening Have you traveled outside of the country in the last 21 days: No (N) Have you had contact with anyone from an Ebola affected area: No Have you been sick,other than usual withdrawal symptoms: No Do you have a fever: No - Review of Systems Constitutional: Diaphoresis EENT: reports: Nose Congestion Respiratory: reports: Cough, Shortness of Breath (COPD?), Wheezing (COPD?) Cardiac: reports: No Symptoms Reported GI: reports: Nausea, Abdominal cramping : reports: No Symptoms Reported Musculoskeletal: reports: No Symptoms Reported Integumentary: reports: Sweating Neuro: reports: Seizure (last in 2017), Tremors Endocrine: reports: No Symptoms Reported Hematology: reports: No Symptoms Reported Psychiatric: reports: No Sypmtoms Reported Other Systems: Reviewed and Negative Patient History - Patient Medical History Hx Anemia: No Hx Asthma: No Hx Chronic Obstructive Pulmonary Disease (COPD): Yes Hx Cancer: No Hx Cardiac Disorders: No Hx Congestive Heart Failure: No Hx Hypertension: No Hx Hypercholesterolemia: No Hx Pacemaker: No HX Cerebrovascular Accident: No Hx Seizures: Yes (last one 2016) Hx Dementia: No Hx Diabetes: No Hx Gastrointestinal Disorders: Yes (dyspepsia) Hx Liver Disease: No Hx Genitourinary Disorders: No Hx Sexually Transmitted Disorders: No Hx Renal Disease (ESRD): No Hx Thyroid Disease: No Hx Human Immunodeficiency Virus (HIV): No Hx Hepatitis C: No Hx Depression: Yes (Lexapro & Seroquel) Hx Suicide Attempt: No Hx Bipolar Disorder: No Hx Schizophrenia: No - Patient Surgical History Past Surgical History: No Hx Neurologic Surgery: No Hx Cataract Extraction: No Hx Cardiac Surgery: No Hx Lung Surgery: No Hx Breast Surgery: No Hx Breast Biopsy: No Hx Abdominal Surgery: No Hx Appendectomy: No Hx Cholecystectomy: No Hx Genitourinary Surgery: No Hx Section: No Hx Orthopedic Surgery: No Hx Hysterectomy: No Anesthesia Reaction: No - PPD History Previous Implant?: Yes Documented Results: Negative w/proof Implanted On Prior [facility] Admission?: Yes Date: 08/27/16 Results: 0 mm PPD to be Administered?: Yes - Reproductive History Last Menstrual Period: 09/17/17 Patient : No - Smoking Cessation Smoking history: Current every day smoker Have you smoked in the past 12 months: Yes Aproximately how many cigarettes per day: 15 Cigars Per Day: 0 Hx Chewing Tobacco Use: No Initiated information on smoking cessation: Yes 'Breaking Loose' booklet given: 10/13/17 - Substance & Tx. History Hx Alcohol Use: Yes Hx Substance Use: Yes Substance Use Type: Alcohol, Heroin, Tranquilizers Hx Substance Use Treatment: Yes (Detox at [facility]) - Substances Abused Alcohol Route: Oral Frequency: Daily Amount used: Wine 1 bottle Age of first use: 17 Date of Last Use: 10/13/17 Alprazolam (Xanax) Route: Oral Frequency: Daily Amount used: 6mg Age of first use: 27 Date of Last Use: 10/10/17 Heroin Route: Inhalation Frequency: Daily Amount used: 8-10 bags Age of first use: 27 Date of Last Use: 10/09/17 Family Disease History - Family Disease History Family Disease History: Diabetes: Grandparent Admission Physical Exam [facility] - Vital Signs Vital Signs: Vital Signs - 24 hr 10/13/17 18:16 Temperature 98.6 F Pulse Rate 123 H Respiratory 18 Rate Blood Pressure 115/69 - Physical General Appearance: Yes: Tremorous, Irritable, Sweating, Anxious HEENTM: Yes: Nasal Congestion, Rhinorrhea Respiratory: Yes: Chest Non-Tender, Lungs Clear, Normal Breath Sounds Neck: Yes: Supple Breast: Yes: Breast Exam Deferred Cardiology: Yes: Regular Rhythm, Regular Rate, S1, S2 Abdominal: Yes: Normal Bowel Sounds, Non Tender, Flat, Soft Genitourinary: Yes: Within Normal Limits Back: Yes: Within Normal Limits Musculoskeletal: Yes: Within Normal Limits Extremities: Yes: Tremors Neurological: Yes: Fully Oriented, Alert Integumentary: Yes: Diaphoresis Lymphatic: Yes: Within Normal Limits - Diagnostic (1) Alcohol dependence with uncomplicated withdrawal Current Visit: Yes Status: Acute (2) Opioid dependence with withdrawal Current Visit: Yes Status: Acute (3) Uncomplicated sedative, hypnotic or anxiolytic withdrawal Current Visit: Yes Status: Acute Cleared for Admission [facility] - Detox or Rehab [facility] Level of Care: Medically Managed Detox Regimen/Protocol: Methadone/Valium [facility] Breath Alcohol Content Breath Alcohol Content: 0 Urine Pregancy Test - Result Urine Test Results: Negative- NO Line Present Urine Drug Screen - Results Drug Screen Negative: No Urine Drug Screen Results: BZO-Benzodiazepines
[2017-10-13] MEDS ORDERED: METHADONE HCL 10 MG TABLET (FOR DETOX USE ONLY) PO ONE ×2 (18:58→23:00)
[2017-10-13] MEDS ORDERED: P-EPHED 60MG/TRIPROLIDI 2.5MG TABLET PO PRN (18:58)
[2017-10-13] MEDS ORDERED: MAG HYDROX/AL HYDROX/SIMETH 30 ML UNIT-DOSE CUP PO PRN (18:58)
[2017-10-13] MEDS ORDERED: guaiFENesin/D-METHORPHAN HB 10 ML UNIT-DOSE CUPS PO PRN (18:58)
[2017-10-13] MEDS ORDERED: MENTHOL/PHENOL 1 EACH UD MM PRN (18:58)
[2017-10-13] MEDS ORDERED: diazePAM 5 MG TABLET PO ONE (18:58)
[2017-10-13] MEDS ORDERED: LOPERAMIDE HCL 2 MG CAPSULE PO PRN (18:58)
[2017-10-13] MEDS ORDERED: MAGNESIUM CITRATE 300 ML BOTTLE PO PRN (18:58)
[2017-10-13] MEDS ORDERED: MAGNESIUM HYDROX 2400MG/30ML ORAL SUSPENSION 30 ML CUP PO PRN (18:58)
[2017-10-13] MEDS: NICOTINE 21 MG/24 HOURS TOPICAL PATCH TD SCH (20:15)
[2017-10-13] MEDS: THIAMINE HCL 100 MG TABLET (FP) PO SCH (22:07)
[2017-10-13] MEDS: IBUPROFEN 400 MG TABLET (FP) PO PRN (22:07)
[2017-10-13] MEDS: diazePAM 5 MG TABLET PO SCH (22:07)
[2017-10-14 00:02] LABS: URINE APPEARANCE SLCLOUDY; URINE BILIRUBIN NEGATIVE (NEGATIVE); URINE BLOOD NEGATIVE (NEGATIVE); URINE COLOR YELLOW; URINE GLUCOSE (UA) NEGATIVE (NEGATIVE); URINE KETONE NEGATIVE (NEGATIVE); URINE LEUK ESTERASE NEGATIVE (NEGATIVE); URINE NITRITE NEGATIVE (NEGATIVE); URINE PROTEIN NEGATIVE (NEGATIVE); URINE UROBILINOGEN NEGATIVE mg/dL (0.2-1.0)
[2017-10-14] MEDS: diazePAM 5 MG TABLET PO SCH ×3 (05:40→22:06)
[2017-10-14] MEDS: IBUPROFEN 400 MG TABLET (FP) PO PRN (05:41)
--- NOTE | 2017-10-14 09:16 | PN ---
[facility] CIWA - CIWA Score Nausea/Vomitin-Mild Nausea/No Vomiting Muscle Tremors: 3 Anxiety: 4-Mod. Anxious/Guarded Agitation: 3 Paroxysmal Sweats: 1-Minimal Palms Moist Orientation: 0-Oriented Tacttile Disturbances: 0-None Auditory Disturbances: 0-None Visual Disturbances: 0-None Headache: 0-None Present CIWA-Ar Total Score: 12 BHS COWS - Scale Resting Pulse: 1= [place] 81-100 Sweatin= Chills/Flushing Restless Observation: 3= Extraneous Movement Pupil Size: 0= Normal to Room Light Bone or Joint Aches: 2= Severe Diffuse Aches Runny Nose/ Eye Tearin= Runny Nose/Eyes GI Upset > 30mins: 2= Nausea/Diarrhea Tremor Observation of Outstretched Hands: 2= Slight Tremor Visible Yawning Observation: 1= 1-2x During Session Anxiety or Irritability: 2=Irritable/Anxious Goose Flesh Skin: 0=Smooth Skin COWS Score: 16 [facility] Progress Note (SOAP) Subjective: body and joints ache GI distress anxiety itching skin running nose Objective: 10/14/17 09:15 Vital Signs Temperature 97.3 F L 10/14/17 06:00 Pulse Rate 88 10/14/17 06:00 Respiratory Rate 16 10/14/17 06:00 Blood Pressure 115/76 10/14/17 06:00 O2 Sat by Pulse Oximetry (%) Laboratory Last Values Urine Color Yellow 10/13/17 23:30 Urine Appearance Slcloudy 10/13/17 23:30 Urine pH 5.0 (5.0-8.0) 10/13/17 23:30 Ur Specific [place] 1.023 (1.001-1.035) 10/13/17 23:30 Urine Protein Negative (NEGATIVE) 10/13/17 23:30 Urine Glucose (UA) Negative (NEGATIVE) 10/13/17 23:30 Urine Ketones Negative (NEGATIVE) 10/13/17 23:30 Urine Blood Negative (NEGATIVE) 10/13/17 23:30 Urine Nitrite Negative (NEGATIVE) 10/13/17 23:30 Urine Bilirubin Negative (NEGATIVE) 10/13/17 23:30 Urine Urobilinogen Negative mg/dL (0.2-1.0) 10/13/17 23:30 Ur Leukocyte Esterase Negative (NEGATIVE) 10/13/17 23:30 lab noted Assessment: 10/14/17 09:15 withdrawal sx Plan: continue detox
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
[2017-10-14] MEDS ORDERED: METHOCARBAMOL 500 MG TABLET PO ONE (10:00)
[2017-10-14] MEDS ORDERED: METHADONE HCL 10 MG TABLET (FOR DETOX USE ONLY) PO SCH (10:00)
[2017-10-14] MEDS: RANITIDINE HCL 150 MG TABLET (FP) PO SCH ×2 (10:00→22:07)
[2017-10-14] MEDS: PRENATAL VITAMINS W/ FOLIC ACID TABLET (FP) PO SCH (10:18)
[2017-10-14] MEDS: NICOTINE 21 MG/24 HOURS TOPICAL PATCH TD SCH (10:19)
[2017-10-14] MEDS: diazePAM 5 MG TABLET PO PRN ×2 (10:23→17:41)
[2017-10-14] MEDS: ALBUTEROL SO4 18 GM HFA INHALER IH PRN ×2 (10:26→22:09)
[2017-10-14 10:36] LABS: MCH 31.8 pg (25.7-33.7); MCHC 32.4 g/dl (32.0-36.0); MEAN CELL VOLUME 98.2 fl (80-96); MEAN PLT VOLUME 7.8 fl (7.5-11.1); PLATELET COUNT 247 K/MM3 (134-434); RBC 4.38 M/mm3 (3.60-5.2); RDW 13.4 % (11.6-15.6); WHITE BLOOD COUNT 11.3 K/mm3 (4.0-10.0)
[2017-10-14 10:52] LABS: ALBUMIN 3.3 g/dl (3.4-5.0); ANION GAP 7 (8-16); BLOOD UREA NITROGEN 23 mg/dL (7-18); CALCIUM 8.6 mg/dL (8.5-10.1); CHLORIDE 104 mmol/L (98-107); CO2 29 mmol/L (21-32); GLUCOSE,RANDOM 58 mg/dL (74-106); SODIUM 140 mmol/L (136-145)
[2017-10-14 10:56] LABS: ALK PHOS 82 U/L (45-117); BILIRUBIN,TOTAL 0.5 mg/dL (0.2-1.0); CREATININE 0.7 mg/dL (0.55-1.02); SGOT/AST 13 U/L (15-37); SGPT/ALT 23 U/L (12-78); TOT PROT 6.5 g/dl (6.4-8.2)
[2017-10-14] MEDS: TRIAMCINOLONE ACET 0.1% OINT 15 GM TUBE TP SCH ×4 (11:00→22:08)
--- NOTE | 2017-10-14 11:43 | EKG ---
Test Reason : Blood Pressure : / mmHG Vent. Rate : 084 BPM Atrial Rate : 084 BPM P-R Int : 138 ms QRS Dur : 086 ms QT Int : 374 ms P-R-T Axes : 056 076 062 degrees QTc Int : 441 ms NORMAL SINUS RHYTHM NORMAL ECG Confirmed by MD ARIEL, JUDE ([id number]) on 10/14/2017 11:42:37 AM Referred By: Teofilo Dow Confirmed By:JUDE GEORGE MD
[2017-10-14] MEDS: NICOTINE POLACRILEX 2 MG GUM BUC PRN (14:16)
[2017-10-14] MEDS: hydrOXYzine PAMOATE 50 MG CAPSULE (FP) PO PRN (17:41)
[2017-10-14] MEDS: ZOLPIDEM TARTRATE 5 MG TABLET PO PRN (22:06)
[2017-10-14] MEDS: QUEtiapine FUMARATE 200 MG TABLET PO SCH (22:07)
[2017-10-14] MEDS: THIAMINE HCL 100 MG TABLET (FP) PO SCH (22:07)
[2017-10-15] MEDS: METHADONE HCL 5 MG TABLET (FOR DETOX USE ONLY) PO SCH (10:15)
[2017-10-15] MEDS: RANITIDINE HCL 150 MG TABLET (FP) PO SCH ×2 (10:15→22:07)
[2017-10-15] MEDS: diazePAM 5 MG TABLET PO SCH ×2 (10:15→22:07)
[2017-10-15] MEDS: TRIAMCINOLONE ACET 0.1% OINT 15 GM TUBE TP SCH ×4 (10:15→22:08)
[2017-10-15] MEDS: PRENATAL VITAMINS W/ FOLIC ACID TABLET (FP) PO SCH (10:15)
[2017-10-15] MEDS: NICOTINE 21 MG/24 HOURS TOPICAL PATCH TD SCH (10:16)
[2017-10-15] MEDS: hydrOXYzine PAMOATE 50 MG CAPSULE (FP) PO PRN (10:19)
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
[2017-10-15] MEDS ORDERED: FLUCONAZOLE 50 MG TABLET PO ONE (11:44)
[2017-10-15] MEDS: diazePAM 5 MG TABLET PO PRN ×2 (12:05→16:57)
[2017-10-15] MEDS: CYCLOBENZAPRINE HCL 5 MG TABLET PO SCH ×2 (14:47→22:08)
[2017-10-15] MEDS: NICOTINE POLACRILEX 2 MG GUM BUC PRN (16:57)
[2017-10-15] MEDS: QUEtiapine FUMARATE 200 MG TABLET PO SCH (22:07)
[2017-10-15] MEDS: ZOLPIDEM TARTRATE 5 MG TABLET PO PRN (22:07)
[2017-10-15] MEDS: THIAMINE HCL 100 MG TABLET (FP) PO SCH (22:07)
[2017-10-15] MEDS: HYDROCORTISONE 1% TOPICAL OINT 30 GM TUBE TP PRN (23:45)
[2017-10-16] MEDS: CYCLOBENZAPRINE HCL 5 MG TABLET PO SCH ×3 (05:14→22:07)
[2017-10-16] MEDS: diazePAM 5 MG TABLET PO PRN ×3 (05:15→18:20)
--- NOTE | 2017-10-16 09:26 | PN ---
[facility] Progress Note (SOAP) Subjective: tremor sweat GI upset restlessness agitation Objective: 10/16/17 09:23 Vital Signs Temperature 98.1 F 10/16/17 06:10 Pulse Rate 100 H 10/16/17 06:10 Respiratory Rate 20 10/16/17 06:10 Blood Pressure 117/59 10/16/17 06:10 O2 Sat by Pulse Oximetry (%) Laboratory Last Values WBC 11.3 K/mm3 (4.0-10.0) H 10/14/17 07:30 RBC 4.38 M/mm3 (3.60-5.2) 10/14/17 07:30 Hgb 14.0 GM/dL (10.7-15.3) D 10/14/17 07:30 Hct 43.0 % (32.4-45.2) 10/14/17 07:30 MCV 98.2 fl (80-96) H 10/14/17 07:30 MCH 31.8 pg (25.7-33.7) 10/14/17 07:30 MCHC 32.4 g/dl (32.0-36.0) 10/14/17 07:30 RDW 13.4 % (11.6-15.6) 10/14/17 07:30 Plt Count 247 K/MM3 (134-434) 10/14/17 07:30 MPV 7.8 fl (7.5-11.1) 10/14/17 07:30 Sodium 140 mmol/L (136-145) 10/14/17 07:30 Potassium 4.0 mmol/L (3.5-5.1) 10/14/17 07:30 Chloride 104 mmol/L (98-107) 10/14/17 07:30 Carbon Dioxide 29 mmol/L (21-32) 10/14/17 07:30 Anion Gap 7 (8-16) L 10/14/17 07:30 BUN 23 mg/dL (7-18) H 10/14/17 07:30 Creatinine 0.7 mg/dL (0.55-1.02) 10/14/17 07:30 Creat Clearance w eGFR > 60 (>60) 10/14/17 07:30 Random Glucose 58 mg/dL (74-106) L 10/14/17 07:30 Calcium 8.6 mg/dL (8.5-10.1) 10/14/17 07:30 Total Bilirubin 0.5 mg/dL (0.2-1.0) D 10/14/17 07:30 AST 13 U/L (15-37) L 10/14/17 07:30 ALT 23 U/L (12-78) 10/14/17 07:30 Alkaline Phosphatase 82 U/L (45-117) 10/14/17 07:30 Total Protein 6.5 g/dl (6.4-8.2) 10/14/17 07:30 Albumin 3.3 g/dl (3.4-5.0) L 10/14/17 07:30 Urine Color Yellow 10/13/17 23:30 Urine Appearance Slcloudy 10/13/17 23:30 Urine pH 5.0 (5.0-8.0) 10/13/17 23:30 Ur Specific [place] 1.023 (1.001-1.035) 10/13/17 23:30 Urine Protein Negative (NEGATIVE) 10/13/17 23:30 Urine Glucose (UA) Negative (NEGATIVE) 10/13/17 23:30 Urine Ketones Negative (NEGATIVE) 10/13/17 23:30 Urine Blood Negative (NEGATIVE) 10/13/17 23:30 Urine Nitrite Negative (NEGATIVE) 10/13/17 23:30 Urine Bilirubin Negative (NEGATIVE) 10/13/17 23:30 Urine Urobilinogen Negative mg/dL (0.2-1.0) 10/13/17 23:30 Ur Leukocyte Esterase Negative (NEGATIVE) 10/13/17 23:30 RPR Titer Nonreactive (NONREACTIVE) 10/14/17 07:30 lab noted Assessment: 10/16/17 09:24 withdrawal sx Plan: continue detox
[2017-10-16] MEDS: TRIAMCINOLONE ACET 0.1% OINT 15 GM TUBE TP SCH ×4 (10:16→22:08)
[2017-10-16] MEDS: METHADONE HCL 5 MG TABLET (FOR DETOX USE ONLY) PO SCH (10:17)
[2017-10-16] MEDS: PRENATAL VITAMINS W/ FOLIC ACID TABLET (FP) PO SCH (10:17)
[2017-10-16] MEDS: NICOTINE 21 MG/24 HOURS TOPICAL PATCH TD SCH (10:17)
[2017-10-16] MEDS: RANITIDINE HCL 150 MG TABLET (FP) PO SCH ×2 (10:17→22:07)
[2017-10-16] MEDS: diazePAM 5 MG TABLET PO SCH ×2 (10:20→22:07)
[2017-10-16] MEDS ORDERED: COLLOIDAL OATMEAL 1 BAR EACH TP PRN (13:29)
[2017-10-16] MEDS: hydrOXYzine PAMOATE 50 MG CAPSULE (FP) PO PRN (14:42)
[2017-10-16] MEDS: NICOTINE POLACRILEX 2 MG GUM BUC PRN (14:46)
[2017-10-16] MEDS: THIAMINE HCL 100 MG TABLET (FP) PO SCH (22:07)
[2017-10-16] MEDS: ZOLPIDEM TARTRATE 5 MG TABLET PO PRN (22:07)
[2017-10-16] MEDS: QUEtiapine FUMARATE 200 MG TABLET PO SCH (22:07)
[2017-10-16] MEDS: HYDROCORTISONE 1% TOPICAL OINT 30 GM TUBE TP PRN (22:08)
[2017-10-17] MEDS: CYCLOBENZAPRINE HCL 5 MG TABLET PO SCH ×3 (05:52→22:22)
[2017-10-17] MEDS: hydrOXYzine PAMOATE 50 MG CAPSULE (FP) PO PRN ×4 (05:52→18:36)
[2017-10-17] MEDS: ACETAMINOPHEN 325 MG TABLET (FP) PO PRN ×2 (05:53→22:25)
[2017-10-17] MEDS ORDERED: IBUPROFEN 400 MG TABLET (FP) PO PRN (09:03)
--- NOTE | 2017-10-17 09:42 | PN ---
[facility] Progress Note (SOAP) Subjective: ALERT,IRRITABLE.ANXIOUS,INTERRUPTED SLEEP,PAIN IN THE BACK Objective: 10/17/17 09:41 Vital Signs Temperature 98.1 F 10/17/17 06:07 Pulse Rate 101 H 10/17/17 06:07 Respiratory Rate 20 10/17/17 06:07 Blood Pressure 102/59 10/17/17 06:07 O2 Sat by Pulse Oximetry (%) Assessment: 10/17/17 09:41 WITHDRAWAL SYMPTOM Plan: CONTINUE DETOX,LIDODERM PATCH,DISCHARGE IN AM
[2017-10-17] MEDS ORDERED: diazePAM 5 MG TABLET PO SCH (10:00)
[2017-10-17] MEDS: LIDOCAINE 5% TOPICAL PATCH TP SCH (10:00)
[2017-10-17] MEDS ORDERED: METHADONE HCL 10 MG TABLET (FOR DETOX USE ONLY) PO SCH (10:00)
[2017-10-17] MEDS: PRENATAL VITAMINS W/ FOLIC ACID TABLET (FP) PO SCH (10:10)
[2017-10-17] MEDS: TRIAMCINOLONE ACET 0.1% OINT 15 GM TUBE TP SCH ×4 (10:11→22:23)
[2017-10-17] MEDS: RANITIDINE HCL 150 MG TABLET (FP) PO SCH ×2 (10:11→22:22)
[2017-10-17] MEDS: NICOTINE 21 MG/24 HOURS TOPICAL PATCH TD SCH (10:11)
[2017-10-17] MEDS: ALBUTEROL SO4 18 GM HFA INHALER IH PRN (10:14)
[2017-10-17] MEDS: NICOTINE POLACRILEX 2 MG GUM BUC PRN ×3 (10:56→18:09)
[2017-10-17] MEDS: ZOLPIDEM TARTRATE 5 MG TABLET PO PRN (22:22)
[2017-10-17] MEDS: QUEtiapine FUMARATE 200 MG TABLET PO SCH (22:22)
[2017-10-17] MEDS: THIAMINE HCL 100 MG TABLET (FP) PO SCH (22:22)
[2017-10-17] MEDS: HYDROCORTISONE 1% TOPICAL OINT 30 GM TUBE TP PRN (22:23)
[2017-10-17] MEDS: LIDOCAINE PATCH REMOVAL MC SCH (22:38)
[2017-10-18] MEDS ORDERED: METHADONE HCL 5 MG TABLET (FOR DETOX USE ONLY) PO SCH (06:00)
[2017-10-18] MEDS: CYCLOBENZAPRINE HCL 5 MG TABLET PO SCH ×3 (06:04→22:25)
[2017-10-18] MEDS: hydrOXYzine PAMOATE 50 MG CAPSULE (FP) PO PRN ×4 (06:05→18:48)
[2017-10-18] MEDS: ACETAMINOPHEN 325 MG TABLET (FP) PO PRN (07:21)
--- NOTE | 2017-10-18 08:15 | DS ---
[facility] Detox Discharge Summary Admission Date: 10/13/17 Discharge Date: 10/18/17 - History Present History: Alcohol Dependence, Opioid Dependence Additional Comments: FOLLOW UP WITH AFTER CARE PROGRAM ARRANGEMENT Pertinent Past History: ASTHMA LOW BACK PAIN - Physical Exam Results Vital Signs: Vital Signs Temperature 96.8 F L 10/18/17 06:00 Pulse Rate 90 10/18/17 06:00 Respiratory Rate 18 10/18/17 06:00 Blood Pressure 129/80 10/18/17 06:00 O2 Sat by Pulse Oximetry (%) Pertinent Admission Physical Exam Findings: WITHDRAWAL SYMPTOM AND FINDING - Treatment Hospital Course: Detox Protocol Followed, Detoxed Safely, Responded well, Discharged Condition Good, Rehab Referral Accepted Patient has Accepted a Rehab Referral to: [facility] - Medication Discharge Medications: Ambulatory Orders Albuterol Sulfate Inhaler - [Ventolin HFA Inhaler -] 2 puff IH Q4H PRN #1 inhaler 02/22/17 Escitalopram Oxalate [Lexapro -] 20 mg PO DAILY 10/13/17 Quetiapine Fumarate [Seroquel -] 200 mg PO BID #30 tablet 10/14/17 - Diagnosis (1) Opioid dependence with withdrawal Current Visit: Yes Status: Acute (2) Alcohol dependence with uncomplicated withdrawal Current Visit: Yes Status: Acute (3) Asthma Current Visit: Yes Status: Acute (4) Nicotine dependence Current Visit: No Status: Acute (5) Low back pain Current Visit: Yes Status: Acute (6) Substance induced mood disorder Current Visit: No Status: Acute (7) Substance-induced sleep disorder Current Visit: No Status: Acute - AMA Did Patient Leave Against Medical Advice: No
--- NOTE | 2017-10-18 09:11 | PN ---
S Progress Note Note: PATIENT IS ANXIOUS,PAIN IN THE BACK,BODY,INTERRUPTED SLEEP WILL HOLD ON DISCHARGE,CONTINUE MONITORING FOR 24 HRS, VISTARIL 50 MGS PO PRN FOR ANXIETY Q 4 HRS,CLOSE MONITORING
[2017-10-18] MEDS: RANITIDINE HCL 150 MG TABLET (FP) PO SCH ×2 (10:23→22:25)
[2017-10-18] MEDS: PRENATAL VITAMINS W/ FOLIC ACID TABLET (FP) PO SCH (10:23)
[2017-10-18] MEDS: NICOTINE 21 MG/24 HOURS TOPICAL PATCH TD SCH (10:23)
[2017-10-18] MEDS: TRIAMCINOLONE ACET 0.1% OINT 15 GM TUBE TP SCH ×4 (10:24→22:26)
[2017-10-18] MEDS ORDERED: LIDOCAINE VISCOUS 2% ORAL/TOP 20 ML UNIT-DOSE CUP MM PRN (10:30)
[2017-10-18] MEDS: LIDOCAINE 5% TOPICAL PATCH TP SCH (14:39)
[2017-10-18] MEDS: THIAMINE HCL 100 MG TABLET (FP) PO SCH (22:25)
[2017-10-18] MEDS: LIDOCAINE PATCH REMOVAL MC SCH (22:25)
[2017-10-18] MEDS: QUEtiapine FUMARATE 200 MG TABLET PO SCH (22:25)
[2017-10-18] MEDS: ZOLPIDEM TARTRATE 5 MG TABLET PO PRN (22:25)
[2017-10-18] MEDS: ALBUTEROL SO4 18 GM HFA INHALER IH PRN (22:28)
[2017-10-19] MEDS: CYCLOBENZAPRINE HCL 5 MG TABLET PO SCH (06:03)
[2017-10-19] MEDS: hydrOXYzine PAMOATE 50 MG CAPSULE (FP) PO PRN ×2 (06:04→10:18)
[2017-10-19] MEDS: ACETAMINOPHEN 325 MG TABLET (FP) PO PRN (06:07)
--- NOTE | 2017-10-19 08:56 | DS ---
[facility] Detox Discharge Summary Admission Date: 10/13/17 Discharge Date: 10/19/17 - History Present History: Alcohol Dependence, Opioid Dependence, Sedative Dependence Additional Comments: FOLLOW UP WITH AFTER CARE PROGRAM ARRANGEMENT Pertinent Past History: ASTHMA LOW BACK PAIN - Physical Exam Results Vital Signs: Vital Signs Temperature 97.9 F 10/19/17 06:29 Pulse Rate 90 10/19/17 06:29 Respiratory Rate 18 10/19/17 06:29 Blood Pressure 107/60 10/19/17 06:29 O2 Sat by Pulse Oximetry (%) Pertinent Admission Physical Exam Findings: WITHDRAWAL SYMPTOM AND FINDING - Treatment Hospital Course: Detox Protocol Followed, Detoxed Safely, Responded well, Discharged Condition Good, Rehab Referral Accepted Patient has Accepted a Rehab Referral to: [facility] Discharge Medications: Ambulatory Orders Escitalopram Oxalate [Lexapro -] 20 mg PO DAILY 10/13/17 Quetiapine Fumarate [Seroquel -] 200 mg PO BID #30 tablet 10/14/17 Albuterol Sulfate Inhaler - [Ventolin HFA Inhaler -] 2 puff IH Q4H PRN #1 inhaler 10/18/17 Triamcinolone 0.1% Ointment [Aristocort 0.1% Ointment -] 1 applic TP QID applic 10/18/17 - Diagnosis (1) Opioid dependence with withdrawal Current Visit: Yes Status: Acute (2) Alcohol dependence with uncomplicated withdrawal Current Visit: Yes Status: Acute (3) Asthma Current Visit: Yes Status: Acute (4) Nicotine dependence Current Visit: No Status: Acute (5) Low back pain Current Visit: Yes Status: Acute (6) Substance induced mood disorder Current Visit: No Status: Acute (7) Substance-induced sleep disorder Current Visit: No Status: Acute (8) Psoriasis Current Visit: Yes Status: Acute - AMA Did Patient Leave Against Medical Advice: No
[2017-10-19 09:55] VITALS: BP 110/61; PULSE 111; TEMP 98.1
[2017-10-19] MEDS: PRENATAL VITAMINS W/ FOLIC ACID TABLET (FP) PO SCH (10:17)
[2017-10-19] MEDS: NICOTINE 21 MG/24 HOURS TOPICAL PATCH TD SCH (10:17)
[2017-10-19] MEDS: TRIAMCINOLONE ACET 0.1% OINT 15 GM TUBE TP SCH (10:19)
[2017-10-19] MEDS: RANITIDINE HCL 150 MG TABLET (FP) PO SCH (10:19)
== END 2017-10-19 10:50 | disposition home or self-care (01) | DRG 773 ==
LOC: YASAS 17:51 → Y6N 19:11
PROVIDERS: ADMIT Internal Medicine; ATTEND Internal Medicine
PROC: HZ2ZZZZ Detoxification Services for Substance Abuse Treatment (ICD-10-PCS; principal; 2017-10-13)
DX: F11.23 Opioid dependence with withdrawal (principal); F13.230 Sedative, hypnotic or anxiolytic dependence with withdrawal, uncomplicated; F10.230 Alcohol dependence with withdrawal, uncomplicated; F17.210 Nicotine dependence, cigarettes, uncomplicated; F19.282 Other psychoactive substance dependence with psychoactive substance-induced sleep disorder; F19.24 Other psychoactive substance dependence with psychoactive substance-induced mood disorder; L40.9 Psoriasis, unspecified; J45.909 Unspecified asthma, uncomplicated; J43.9 Emphysema, unspecified; M54.5 Low back pain; G89.29 Other chronic pain
CPT/HCPCS: 36415; 80053; 81003; 85027; 86593; 93005; 93010

== ENCOUNTER 2022-05-24 12:23 | Inpatient (IN) | payer OTHER ==
[2022-05-24 13:59] VITALS: BMI 21.9
[2022-05-24] MEDS ORDERED: BENZOCAINE/MENTHOL (CHLORASEPTIC ) LOZENGE MM PRN (18:56)
[2022-05-24] MEDS ORDERED: ACETAMINOPHEN 325 MG TABLET (FP) PO PRN ×2 (18:56)
[2022-05-24] MEDS ORDERED: MAG HYDROX/AL HYDROX/SIMETH 30 ML UNIT-DOSE CUP PO PRN (18:56)
[2022-05-24] MEDS ORDERED: NICOTINE POLACRILEX 2 MG GUM BUC PRN (18:56)
[2022-05-24] MEDS ORDERED: ONDANSETRON *ODT* 4 MG TABLET SL PRN (18:56)
[2022-05-24] MEDS ORDERED: BISMUTH SUBSALICYLATE 524 MG/30 ML PO PRN (18:56)
[2022-05-24] MEDS ORDERED: IBUPROFEN 600 MG TABLET (FP) PO PRN (18:56)
[2022-05-24] MEDS ORDERED: MAGNESIUM CITRATE 300 ML BOTTLE PO PRN (18:56)
[2022-05-24] MEDS ORDERED: LOPERAMIDE HCL 2 MG CAPSULE PO PRN (18:56)
[2022-05-24] MEDS ORDERED: DICYCLOMINE HCL 10 MG CAPSULE PO PRN (18:56)
[2022-05-24] MEDS ORDERED: IBUPROFEN 400 MG TABLET (FP) PO PRN (18:56)
[2022-05-24] MEDS ORDERED: MAGNESIUM HYDROX 2400MG/30ML ORAL SUSPENSION 30 ML CUP PO PRN (18:56)
[2022-05-24] MEDS: METHOCARBAMOL 500 MG TABLET PO PRN (20:01)
[2022-05-24] MEDS: diazePAM 5 MG TABLET PO PRN (20:01)
[2022-05-24] MEDS ORDERED: MELATONIN 5 MG TABLETS PO SCH (22:00)
[2022-05-24] MEDS: THIAMINE HCL 100 MG TABLET (FP) PO SCH (22:15)
[2022-05-24] MEDS: diazePAM 5 MG TABLET PO SCH (22:15)
[2022-05-25] MEDS: diazePAM 5 MG TABLET PO SCH ×4 (05:38→22:12)
[2022-05-25 09:36] LABS: HEMATOCRIT 42.5 % (32.4-45.2); HEMOGLOBIN 14.7 GM/dL (10.7-15.3); MCHC 34.6 g/dl (32.0-36.0); MEAN CELL VOLUME 95.5 fl (80-96); MEAN PLT VOLUME 7.9 fl (7.5-11.1); PLATELET COUNT 262 10^3/uL (134-434); RBC 4.45 M/mm3 (3.60-5.2); RDW 12.5 % (11.6-15.6); WHITE BLOOD COUNT 8.8 K/mm3 (4.0-10.0)
[2022-05-25 10:19] LABS: ALBUMIN 3.1 g/dl (3.4-5.0); BILIRUBIN,TOTAL 0.2 mg/dL (0.2-1); BLOOD UREA NITROGEN 21.9 mg/dL (7-18); CREATININE 0.8 mg/dL (0.55-1.3); TOT PROT 6.2 g/dl (6.4-8.2)
[2022-05-25] MEDS: PRENATAL VITAMINS W/ FOLIC ACID TABLET (FP) PO SCH (10:31)
[2022-05-25] MEDS: NICOTINE 10 MG CARTRIDGE (INHALER) IH PRN (10:36)
[2022-05-25] MEDS: METHOCARBAMOL 500 MG TABLET PO PRN ×2 (10:37→18:05)
[2022-05-25] MEDS: NICOTINE 14 MG/24 HOURS TOPICAL PATCH TD SCH (10:39)
[2022-05-25] MEDS ORDERED: methaDONE HCL 40 MG DISPERSABLE TABLET PO ONE (10:45)
[2022-05-25] MEDS ORDERED: methaDONE HCL 10 MG TABLET PO ONE (13:00)
[2022-05-25] MEDS: diazePAM 5 MG TABLET PO PRN ×2 (13:34→20:08)
[2022-05-25] MEDS: THIAMINE HCL 100 MG TABLET (FP) PO SCH (22:11)
[2022-05-25] MEDS: SUVOREXANT 10 MG TABLET PO PRN (22:11)
[2022-05-26] MEDS: diazePAM 5 MG TABLET PO PRN ×5 (02:36→20:27)
[2022-05-26] MEDS: diazePAM 5 MG TABLET PO SCH ×3 (05:24→22:51)
[2022-05-26] MEDS ORDERED: methaDONE HCL 10 MG TABLET PO ONE (06:00)
[2022-05-26] MEDS ORDERED: methaDONE 40 MG, methaDONE 10 MG PO ONE (06:00)
[2022-05-26] MEDS: PRENATAL VITAMINS W/ FOLIC ACID TABLET (FP) PO SCH (10:38)
[2022-05-26] MEDS: NICOTINE 14 MG/24 HOURS TOPICAL PATCH TD SCH (10:38)
[2022-05-26] MEDS: METHOCARBAMOL 500 MG TABLET PO PRN (15:02)
[2022-05-26] MEDS: NICOTINE 10 MG CARTRIDGE (INHALER) IH PRN (20:27)
[2022-05-26] MEDS: THIAMINE HCL 100 MG TABLET (FP) PO SCH (22:50)
[2022-05-26] MEDS: SUVOREXANT 10 MG TABLET PO PRN (22:51)
[2022-05-26 23:05] VITALS: TEMP 97.5
[2022-05-27] MEDS: diazePAM 5 MG TABLET PO PRN ×2 (02:23→09:12)
[2022-05-27] MEDS ORDERED: methaDONE HCL 10 MG TABLET PO ONE (05:00)
[2022-05-27] MEDS: NICOTINE 10 MG CARTRIDGE (INHALER) IH PRN (05:46)
[2022-05-27 05:55] VITALS: RESP 18
[2022-05-27] MEDS ORDERED: methaDONE 40 MG, methaDONE 20 MG PO ONE (06:00)
[2022-05-27] MEDS ORDERED: diazePAM 5 MG TABLET PO SCH (06:00)
[2022-05-27] MEDS: PRENATAL VITAMINS W/ FOLIC ACID TABLET (FP) PO SCH (09:12)
[2022-05-27] MEDS: METHOCARBAMOL 500 MG TABLET PO PRN (09:14)
[2022-05-27] MEDS: NICOTINE 14 MG/24 HOURS TOPICAL PATCH TD SCH (09:15)
[2022-05-27 09:42] VITALS: BP 112/64; PULSE 70
[2022-05-28] MEDS ORDERED: methaDONE 40 MG, methaDONE 30 MG PO ONE (06:00)
[2022-05-28] MEDS ORDERED: diazePAM 5 MG TABLET PO ONE (06:00)
[2022-05-28] MEDS ORDERED: methaDONE HCL 10 MG TABLET PO ONE (06:00)
== END 2022-05-27 10:13 | disposition home or self-care (01) | DRG 773 ==
LOC: YASAS 12:23 → Y6N 18:55
PROVIDERS: ADMIT Allergy & Immunology; ATTEND Surgery
PROC: HZ2ZZZZ Detoxification Services for Substance Abuse Treatment (ICD-10-PCS; principal; 2022-05-24)
DX: F11.23 Opioid dependence with withdrawal (principal); F10.230 Alcohol dependence with withdrawal, uncomplicated; F14.20 Cocaine dependence, uncomplicated; F12.20 Cannabis dependence, uncomplicated; F17.210 Nicotine dependence, cigarettes, uncomplicated; F19.280 Other psychoactive substance dependence with psychoactive substance-induced anxiety disorder; F19.282 Other psychoactive substance dependence with psychoactive substance-induced sleep disorder; F34.1 Dysthymic disorder; F41.8 Other specified anxiety disorders; G40.909 Epilepsy, unspecified, not intractable, without status epilepticus; J43.9 Emphysema, unspecified; K21.9 Gastro-esophageal reflux disease without esophagitis; M41.9 Scoliosis, unspecified; M54.50 Low back pain, unspecified; G89.29 Other chronic pain
CPT/HCPCS: 36415; 80053; 81025; 85027; 86780; 93005; 93010; C9803-CS; Q0162; U0003; U0005